=== PATIENT | female | born 1955 | race Caucasian/White ===

== ENCOUNTER 2020-03-31 12:52 | Outpatient (CLI) | payer MEDICARE, OTHER, SELFPAY ==
[2020-03-31] MEDS: iohexol 300 mg/mL 50 mL Btl PO (13:12)
--- NOTE | 2020-03-31 13:30 | CT_ITS ---
WS: [id number] CT ABDOMEN PELVIS TECHNIQUE: Contrast-enhanced CT of the abdomen and pelvis with coronal and sagittal reformatted image s. CLINICAL INFORMATION: abdominal pain- left lower quadrant COMPARISON: July 03, 2019 DLP: 1167.[address] scans at [facility] use at least one of these dose optimization techniques: automat ed exposure control; mA and/or kV adjustment per patient size (includes targeted exams where dose is matched to clinical indication); or iterative reconstruction. FINDINGS: Diffuse fatty infiltration of the liver. Small right hepatic cyst. Portal vein and splenic vein are n ormal. Small esophageal hiatal hernia. A few calcified granulomas in the lung bases. 2 or 3 additiona l pulmonary nodules appear noncalcified measuring up to 3.5 mm Normal gallbladder. Small polyp or noncalcified gallstone in the dependent portion the gallbladder. N o gallbladder wall thickening. Adrenal glands are normal. Normal renal parenchymal enhancement. No hy dronephrosis. No abdominal lymphadenopathy. Sigmoid diverticulosis. No evidence of acute diverticulit is. No evidence of small or large bowel obstruction. Small fat-containing umbilical hernia. No inguin al lymphadenopathy. Normal visualized lumbar spine. CT/CT abdomen pelvis w con* [id number] IMPRESSION: 1. Mild diffuse infiltration of the liver. Stable small right hepatic cyst. 2. Small polyp or noncalcified gallstone in the gallbladder. This can be furth er evaluated ultrasound. 3. Diverticulosis. No evidence of acute diverticulitis. 4. Small esophageal hiatal hernia. 5. A few noncalcified nodules in the lung bases. Recommend chest CT for furthe r evaluation. 6. No abdominal or inguinal lymphadenopathy. 7. Prior hysterectomy.
[2020-03-31] MEDS: iohexol 300 mg/mL 100 mL Btl IV (14:36)
== END 2020-03-31 12:53 | disposition home or self-care (01) ==
LOC: RADWPI 12:54
PROVIDERS: Family Provider Nurse Practitioner; PCP Nurse Practitioner; Visit Provider Surgery
DX: R10.32 Left lower quadrant pain (principal); K76.89 Other specified diseases of liver; K57.90 Diverticulosis of intestine, part unspecified, without perforation or abscess without bleeding; K44.9 Diaphragmatic hernia without obstruction or gangrene; R91.8 Other nonspecific abnormal finding of lung field
CPT/HCPCS: 74177; Q9967

== ENCOUNTER 2020-04-01 11:08 | Outpatient (CLI) | payer MEDICARE, OTHER, SELFPAY ==
--- NOTE | 2020-04-01 13:44 | PFTS_ITS ---
Date of Study:04/01/20 Date of Dictation: MECHANICS: Forced vital capacity (FVC) is normal. Forced expiratory volume in one second (FEV1) is normal. FEV1/FVC is normal. FLOW VOLUME LOOP: Reduced flow at lower lung volumes. LUNG VOLUMES: Total lung capacity (TLC) is normal. Residual volume (RV) is normal. DIFFUSING CAPACITY FOR CARBON MONOXIDE: Normal. INTERPRETATION: The pulmonary function tests are normal. There is reduced flow at lower lung volumes which could be associated with small airways disease or related to age related changes. Lung volumes are normal Gas exchange (DLCO) is normal. MTDD
== END 2020-04-01 11:09 | disposition home or self-care (01) ==
LOC: RT 11:08
PROVIDERS: Family Provider Nurse Practitioner; PCP Nurse Practitioner; Visit Provider Nurse Practitioner
DX: J45.20 Mild intermittent asthma, uncomplicated (principal)
CPT/HCPCS: 94010; 94726; 94729

== ENCOUNTER 2021-08-07 12:30 | Outpatient (CLI) | payer MEDICARE, OTHER, SELFPAY ==
--- NOTE | 2021-08-07 13:07 | MM_ITS ---
WS: [id number] BILATERAL DIGITAL SCREENING MAMMOGRAPHY WITH CAD CLINICAL INFORMATION: SCREENING HISTORY: Screening mammogram. No current complaints. COMPARISON: March 16, 2019 TECHNIQUE: Bilateral CC and MLO views. FINDINGS: Scattered fibroglandular densities bilaterally. Punctate and lucent centered calcifications. Vascular calcifications. No suspicious focal mass, asymmetry, calcifications, or architectural distortion. No evidence of malignancy. MM/[place] [id number] IMPRESSION: BI-RADS: 2-Benign FOLLOW UP: 1 Year Follow-up Recommend return to annual screening mammography.
== END 2021-08-07 12:31 | disposition home or self-care (01) ==
PROVIDERS: PCP Nurse Practitioner; Visit Provider Nurse Practitioner
DX: Z12.31 Encounter for screening mammogram for malignant neoplasm of breast (principal); Z20.822 Contact with and (suspected) exposure to COVID-19
CPT/HCPCS: 77067; 87635

== ENCOUNTER 2021-08-13 07:00 | Day surgery (SDC) | payer MEDICARE, OTHER, SELFPAY ==
[2021-08-07 12:32] VITALS: BMI 36.6
[2021-08-13 07:34] VITALS: BP 152/99; PULSE 71; RESP 18; TEMP 36.7; O2SAT 97
[2021-08-13] MEDS: sodium chloride 0.9% 1,000 ML 30 ML IV (07:40)
--- NOTE | 2021-08-13 07:48 | ANES.PREANE2 ---
Pre-Anesthetic Assessment Pre-Anesthetic Assessment: Height/Weight: Height 1.65 m Weight 99.79 kg Temp Pulse Resp BP Pulse Ox 98.0 F 71 18 152/99 97 08/13/21 07:34 08/13/21 07:34 08/13/21 07:34 08/13/21 07:34 08/13/21 07:34 Preop Diagnosis: chronic constipation Proposed Procedure: Operation Date: 08/13/21 08:00 Proposed Procedures p Colonoscopy 22476 R19.8 R10.10 K59.09 Z86.010(Not Applicable) - Jeovanny Hollis MD Familial anesthetic complications: sensitive to anesthesia Was Beta David taken within 24 hours: N/A Was Clonidine taken within 24 hours: N/A Last intake: Intake Last Liquid Date 08/12/21 Last Liquid Time 20:00 Last Solid Date 08/12/21 Last Solid Time 20:00 Social: Social History: No alcohol and No tobacco Exam: Pre-Anes Outpt Exam: alert, oriented x 3, clear to auscultation bilaterally and regular rate & rhythm Airway: Submandibular: WNL Cervical ROM: WNL MP: 2 Dentition: Full Pulmonary: Pulmonary: Asthma and Sleep apnea CV/HEM: CV/HEM: Angina (Unstable), Arrythmia and HTN : : None reported Hepatic: Comments: fatty liver GI: GI: None reported Metabolic: Metabolic: DM and Morbid obesity Musc/skel: Musc/skel: None reported Neuropsych: Neuropsych: MONTES (not frequent) Anesthetic Plan: ASA status: 3 Anesthesia: MAC Risk of > 500 ml blood loss (7ml/kg in children): No PFSH Anesthesia PFSH: Medical History Abdominal pain Anxiety Asthma Chronic constipation COPD (chronic obstructive pulmonary disease) Diabetes Diverticulosis H/O methicillin resistant Staphylococcus aureus Herpes simplex Hyperlipidemia Hypertension Surgical History H/O section H/O hemorrhoidectomy H/O myomectomy H/O: hysterectomy History of colonoscopy History of tonsillectomy Family History Grandmother Lung disease Osteoporosis Mother Hypertension Stroke Father Cancer leukemia Unknown Lung disease child with astma Social History Smoking and tobacco status: never smoked Alcohol intake: never Adopted: No Caregiver/support person: Yes Lives independently: Yes Household members: spouse Housing: House Marital status: / service: No Current occupational status: employed Current occupational exposures/hazards: No Pets and animals: No History of recent travel: No Sexually active: No Current gender identity: Female Kalie/Yazdanism: Tenriism Special kalie needs: No Agree to transfusion: No Financial difficulty paying for basics: Decline to Answer Data Anesthesia Cardiac Studies: No Data to Display
--- NOTE | 2021-08-13 07:54 | W.PM.OPSUD ---
Surgery/Procedure H&P Update DATE OF PROCEDURE: August 13, 2021 DATE H&P PERFORMED: 08/03/21 H&P UPDATE INFORMATION: No changes to prior documentation PREOP DIAGNOSIS: Chronic constipation, abnormal bowel movements, history of colon polyps. PLANNED PROCEDURE: Operation Date: 08/13/21 08:00 Proposed Procedures p Colonoscopy 19168 R19.8 R10.10 K59.09 Z86.010(Not Applicable) - Jeovanny Hollis MD
--- NOTE | 2021-08-13 07:58 | ECG_ITS ---
[facility] Test Date: 2021-08-13 Pat Name: Padma Jose Department: Room: Gender: Female Cigarette Packer: : 1955 Requested By: Vel Carrasco Order Number: [id number] Loy MD: Wolf Hammond M.D. Measurements Intervals [place] Rate: 48 P: 45 SC: 192 QRS: -5 QRSD: 90 T: 58 QT: 434 QTc: 389 Interpretive Statements SINUS BRADYCARDIA NONSPECIFIC T-WAVE ABNORMALITY Compared to ECG 04/01/2017 14:25:00 T-wave abnormality now present Electronically Signed On 08-13-2021 23:49:04 CDT by Wolf Hammond M.D. [email or web address] memorial community hospitalSmart Lunchesuniversity hospitals parma medical centerChi2gel/store/OM/[id number]
[2021-08-13 08:33] VITALS: BP 119/77; PULSE 56; RESP 12; TEMP 36.3; O2SAT 96
--- NOTE | 2021-08-13 08:37 | ANE.PACU2 ---
Inpatient post-anesthesia follow up: Airway intact: Yes Vital signs: Temperature 98.0 F Pulse Rate 71 Respiratory Rate 18 Blood Pressure 152/99 Pulse Oximetry 97 Oxygen Delivery Me thod Room Air Oxygen Flow Rate Fraction of Inspir ed Oxygen Hydration adequate: Yes Nausea and vomiting: No Pain level: 1 Mental status: Baseline
[2021-08-13 08:48] VITALS: BP 128/86; PULSE 55; RESP 16; TEMP 36.6; O2SAT 95
== END 2021-08-13 09:10 | disposition home or self-care (01) ==
PROVIDERS: PCP Nurse Practitioner; Visit Provider Surgery
PROC: 0DJD8ZZ Inspection of Lower Intestinal Tract, Via Natural or Artificial Opening Endoscopic (ICD-10-PCS; CPT 45378; principal; 2021-08-13 08:00)
DX: K59.09 Other constipation (principal); K57.30 Diverticulosis of large intestine without perforation or abscess without bleeding; Z86.010 Personal history of colon polyps; J44.9 Chronic obstructive pulmonary disease, unspecified; G47.30 Sleep apnea, unspecified; E11.9 Type 2 diabetes mellitus without complications; E78.5 Hyperlipidemia, unspecified; I10 Essential (primary) hypertension; E66.01 Morbid (severe) obesity due to excess calories; Z68.36 Body mass index [BMI] 36.0-36.9, adult
CPT/HCPCS: 45378; 93005; 96360; J2704; J7030

== ENCOUNTER 2022-02-15 07:49 | Outpatient (CLI) | payer MEDICARE, OTHER, SELFPAY ==
--- NOTE | 2022-02-15 08:05 | USCV_ITS ---
Padma Jose Age: 66 Gender: F : 1955 Exam Date: 02/15/2022 08:46 Ordering Phys: Lisa Guan APN Technologist: LUCIO Exam Location: [facility] [place] Indication: HTN BP: 140 / 80 HR: 63 Rhythm: Sinus Technical Quality: Adequate MEASUREMENTS (Male / Female) Normal Values 2D ECHO LV Diastolic Diameter PLAX 4.1 cm 4.2 - 5.9 / 3.9 - 5.3 cm LV Systolic Diameter PLAX 3.4 cm LV Chamber Size 3.3 cm IVS Diastolic Thickness 1.0 cm 0.6 - 1.0 / 0.6 - 0.9 cm IVS Systolic Thickness 1.2 cm LVPW Diastolic Thickness 1.5 cm 0.6 - 1.0 / 0.6 - 0.9 cm LVPW Systolic Thickness 1.3 cm RV Chamber Size 2.6 cm LVOT Diameter 2.0 cm LV Ejection Fraction 2D Teich 36.9 % LV Ejection Fraction MOD 2C 23.7 % LV Ejection Fraction 2C AL 24.1 % LA Diameter 3.5 cm LA Width 3.0 cm LA Height 3.5 cm RA Width 2.6 cm RA Height 3.0 cm Aorta at Sinotubular Diameter 2.6 cm IVC Diameter 2.0 cm M-MODE Aortic Annulus Diameter 2.9 cm LA Ao Ratio MM 1.3 MV E Point Septal Separation 0.4 cm DOPPLER AV Peak Velocity 278.3 cm/s LVOT Peak Velocity 129.3 cm/s AV Area Cont Eq vti 1.7 cm squared AV Area Cont Eq pk 1.5 cm squared MV Area PHT 2.8 cm squared Mitral E to A Ratio 0.8 MV E' Velocity 44.5 cm/s Mitral E to MV E' Ratio 10.4 Mitral E to LV E' Lateral Ratio 9.4 Mitral E to LV E' Septal Ratio 11.7 TR Peak Velocity 183.4 cm/s TR Peak Gradient 13.5 mmHg TR Mean Velocity 120.3 cm/s TR Mean Gradient 6.6 mmHg TR Velocity Time Integral 38.0 cm TV Peak E Velocity 51.0 cm/s Right Atrial Pressure 3.0 mmHg Pulmonary Artery Systolic Pressu 16.5 mmHg PV Peak Velocity 89.0 cm/s RV Acceleration Time 0.2 s RV Ejection Time 0.3 s RV AcT/ET 0.5 FINDINGS Left Ventricle Normal left ventricular size. LV systolic function is normal with EF of 50-55%. No regional wall motion abnormalities. Grade 1 diastolic dysfunction Right Ventricle The right ventricle is normal in size and function. Right Atrium The right atrium is normal in size. Interatrial septum has possible mass vs artifact. Left Atrium The left atrium is normal in size. Mitral Valve Structurally normal mitral valve without significant stenosis or prolapse. There is no mitral regurgitation. Aortic Valve Thickened aortic valve. Mild aortic stenosis with aortic valve area of 1.4 cm squared and mean gradient across aortic valve of 14 mmHg. No significant aortic regurgitation. Tricuspid Valve Structurally normal tricuspid valve without significant stenosis. Trace tricuspid regurgitation. Pulmonary artery systolic pressure is normal. Pulmonic Valve Not well-visualized Pericardium Normal pericardium without effusion. Aorta Normal ascending aorta dimension. CONCLUSIONS LV systolic function is normal with EF of 50-55% Grade 1 diastolic dysfunction Interatrial septum has possible mass vs artifact. Will benefit from cardiac CT vs CRIS Mild aortic stenosis with aortic valve area of 1.4cm2 and mean gradient across aortic valve of 14mmHg Trace tricuspid regurgitation No comparison studies are available Waldo Viera MD (Electronically Signed) Final Date: 27 Feb 2022 18:32 S
== END 2022-02-15 07:50 | disposition home or self-care (01) ==
LOC: RAD 07:50
PROVIDERS: PCP Nurse Practitioner; Visit Provider Nurse Practitioner
DX: I10 Essential (primary) hypertension (principal)
CPT/HCPCS: 93306

== ENCOUNTER 2022-02-22 15:08 | Outpatient (CLI) | payer MEDICARE, OTHER, SELFPAY ==
--- NOTE | 2022-02-22 15:19 | XR_ITS ---
WS: [id number] XR chest 2V* [id number] REASON FOR EXAM: SHORTNESS OF BREATH/WHEEZING FINDINGS: Chest is unchanged compared to 02/17/2018. Calcified granulomatous disease in both hemithoraces with several larger calcified granulomata in the periphery of the right lung. No active pulmonary parenchymal or pleural disease is identified. Moderate changes of degenerative spondylosis in the mid and lower thoracic spine. XR/XR chest 2V* [id number] IMPRESSION: No acute chest abnormality.
== END 2022-02-22 15:09 | disposition home or self-care (01) ==
LOC: RAD 15:14
PROVIDERS: PCP Nurse Practitioner; Visit Provider Nurse Practitioner Family
DX: R06.02 Shortness of breath (principal); R06.2 Wheezing
CPT/HCPCS: 71046

== ENCOUNTER 2022-03-08 07:39 | Outpatient (CLI) | payer MEDICARE, OTHER, SELFPAY ==
[2022-03-08 07:46] VITALS: BMI 39.9
--- NOTE | 2022-03-08 07:46 | ECG_ITS ---
[facility] Test Date: 2022-03-08 Pat Name: Padma Jose Department: Room: Gender: Female Missile Technician: Vijaya VegaIvy : 1955 Requested By: Lisa Zayas Order Number: [id number] Loy MD: Waldo Viera M.D. Interpretive Statements NAME OF STUDY: LEXISCAN SESTAMIBI STRESS TEST INDICATION: [Atypical Chest Pain, ] Procedure: At the baseline, the blood pressure was 148/100 mmHg with a heart rate of 57 bpm. The electrocardiogram showed normal sinus rhythm, normal axis with normal ST and T's. The Lexiscan was infused over a period of 20 seconds. A total of 0.4 mg of Lexiscan was infused. The stress phase was continued for a total of 5 minutes. Heart rate was at the end of stress phase was 72 bpm and a blood pressure of 136/81 mmHg. The EKG at the peak infusion revealed normal sinus rhythm with no significant ST-T wave changes. Sestamibi was injected 20 seconds after the Lexiscan infusion. Blood pressure at the end of recovery phase was 136/84 mmHg with a heart rate of 72 bpm.Occasional PVCs are seen Conclusion: 1. Normal EKG response to Lexiscan infusion 2. No Lexiscan induced chest pain or cardiac arrhythmia. 3. Normal blood pressure and heart rate response. 4. Sestamibi/sestamibi perfusion scan pending; see separate report. Electronically Signed On 04-04-2022 23:14:27 CDT by Waldo Viera M.D. [id number]
--- NOTE | 2022-03-08 07:47 | NMCV_ITS ---
NM radha perf SPECT r/s* [id number] Padma Jose Age: 66 Gender: F : 1955 Exam Date: 03/08/2022 07:47 Ordering Phys: Lisa Guan APN Technologist: ELTON Finnegan Exam Location: [facility] Indications: SHORTNESS OF BREATH STRESS TEST Please see separate stress test report in [facility] for full findings IMAGE PROTOCOL Rest/Stress 1 Lexiscan Day Radiopharmaceutical Dose (mCi) Administration Site Administered by Rest: Tc-99m 10.9 IV ELTON Garcia Sestamibi Stress:Tc-99m 32.8 IV ELTON Garcia Sestamibi Rest: 08-Mar-2022 60 Discovery 630 Stress: 08-Mar-2022 30 Discovery 630 0.4mg Lexiscan. Images obtained in supine and prone position. SPECT RESULTS Technical Quality: Excellent Raw Data Analysis: Normal Image Corrections: No attenuation or motion correction applied Summed Stress Score: 0 Summed Rest Score: 1 Summed Difference Score: 0 PERFUSION FINDINGS There is homogenous radiotracer uptake throughout the myocardium. No evidence of ischemia FUNCTIONAL RESULTS (calculated via Gated SPECT) Stress Image LV EF (%): 82 Stress EDV (mL):91 TID: 0.93 Stress ESV (mL):16 FUNCTIONAL FINDINGS: There is normal left ventricular systolic function. IMPRESSIONS 1. Normal myocardial perfusion imaging with no evidence of ischemia. 2. Normal LV systolic function Waldo Viera MD (Electronically Signed) Final Date: 08 Mar 2022 12:20 S
[2022-03-08] MEDS: regadenoson 0.4 Mg/5 ml Syringe IVP (09:36)
[2022-03-08 09:54] VITALS: BP 136/84; PULSE 69
== END 2022-03-08 07:40 | disposition home or self-care (01) ==
LOC: CDL 07:45
PROVIDERS: PCP Nurse Practitioner; Visit Provider Nurse Practitioner
DX: R06.02 Shortness of breath (principal)
CPT/HCPCS: 78452; 93017; A9500; J2785

== ENCOUNTER 2022-03-11 13:19 | Outpatient (CLI) | payer MEDICARE, OTHER, SELFPAY ==
--- NOTE | 2022-03-11 14:39 | PFTS_ITS ---
Date of Study:03/11/22 Date of Dictation: MECHANICS: Forced vital capacity (FVC) is normal. Forced expiratory volume in one second (FEV1) is normal. FEV1/FVC is normal. FLOW VOLUME LOOP: Mild scooping. LUNG VOLUMES: Total lung capacity (TLC) is normal. Residual volume (RV) is normal. DIFFUSING CAPACITY FOR CARBON MONOXIDE: Normal. INTERPRETATION: The prebronchodilator spirometry is normal. No postbronchodilator spirometry was performed. Lung volumes are normal. Gas exchange (DLCO) is normal. MTDD
== END 2022-03-11 13:20 | disposition home or self-care (01) ==
LOC: RT 13:22
PROVIDERS: PCP Nurse Practitioner Family; Visit Provider Nurse Practitioner Family
DX: J45.20 Mild intermittent asthma, uncomplicated (principal)
CPT/HCPCS: 94010; 94726; 94729

== ENCOUNTER → 2022-03-17 13:01 | Outpatient (BNVA) | payer MEDICARE, OTHER, SELFPAY | PROVIDERS: PCP Nurse Practitioner Family; Visit Provider Internal Medicine Critical Care Medicine | DX: J45.40 Moderate persistent asthma, uncomplicated (principal); J31.0 Chronic rhinitis; J32.9 Chronic sinusitis, unspecified; D15.1 Benign neoplasm of heart; I35.0 Nonrheumatic aortic (valve) stenosis; J45.909 Unspecified asthma, uncomplicated; R06.02 Shortness of breath; E11.8 Type 2 diabetes mellitus with unspecified complications; E78.5 Hyperlipidemia, unspecified; I10 Essential (primary) hypertension | CPT/HCPCS: 82785; 85025; 86003; 99204 ==

== ENCOUNTER 2022-05-02 18:51 | Emergency (ER) | payer MEDICARE, OTHER, SELFPAY ==
[2022-05-02 19:11] VITALS: BP 156/78; PULSE 71; RESP 20; TEMP 36.9; O2SAT 95; BMI 42.0
--- NOTE | 2022-05-02 21:32 | USR_ITS ---
PROCEDURE INFORMATION: Exam: US Abdomen, Limited; Right Upper Quadrant Exam date and time: 05/02/2022 10:25 PM Age: 66 years old Clinical indication: Abdominal pain; Additional info: Ruq pain TECHNIQUE: Imaging protocol: Real time ultrasound of the abdomen with image documentation. Limited exam focused on the right upper quadrant. COMPARISON: CT abdomen pelvis w con* [id number] 03/31/2020 2:35 PM FINDINGS: Liver: Visible portion of the liver is normal. Gallbladder: The gallbladder is nondistended. There are no stones. There is no pericholecystic fluid. Sonographic Castillo sign is negative. The gallbladder wall is diffusely thickened to 5 mm. The wall is echogenic. There is no laminar edema. Biliary ducts: The common bile duct is nondilated measuring 3 mm. Pancreas: The visible portion of the pancreas is unremarkable. Right kidney: Not imaged US/US gall bladder [id number] IMPRESSION: Nonspecific gallbladder wall thickening. Possible adenomyomatosis. Chronic cholecystitis is not excluded. There are no other findings of acute cholecystitis and no tenderness to transducer pressure over gallbladder.
--- NOTE | 2022-05-02 22:12 | W.ED.ABDPA2 ---
Documented by User: ILIANA Deleon 05/03/22 03:10 HPI - Abdominal Pain General: Chief Complaint: Abdominal Pain Stated Complaint: Pain Under right Breast goes around\V Time Seen by Provider: 05/02/22 21:32 History of Present Illness: Patient is a 66-year-old female comes to the ED with abdominal pain nausea and vomiting. Symptoms started approximately 2 days ago. Pain is located in the right upper quadrant of the abdomen. She rates the pain currently a 7 out of 10. She says she has had nausea and vomiting with the pain. She had multiple episodes of emesis yesterday. Endorses a decreased appetite since onset of symptoms. Eating food does not worsen abdominal pain. Patient says her urine appears darker than usual. Denies any fevers, chest pain, shortness of breath, diarrhea, constipation, dysuria or hematuria. Past abdominal surgery history of and appendectomy. Patient still has gallbladder and has been told years ago that she had gallstones. Associated Symptoms: Reports nausea and vomiting; Denies chills, constipation, diarrhea, dysuria, fever(s), hematochezia and hematuria Review of Systems Const: Reports: change in appetite (Decreased); Denies: fever(s), chills or fatigue Eyes: Denies: change in vision or eye discomfort ENMT: Denies: throat pain, odynophagia, nasal discharge or nasal congestion Card: Denies: chest pain, palpitations, edema, swelling of feet/ankles, dyspnea on exertion or orthopnea Resp: Denies: dyspnea, productive cough or non-productive cough GI: Reports: abdominal pain (Right upper quadrant), nausea and vomiting; Denies: diarrhea, constipation or hematochezia : Denies: flank pain, dysuria or hematuria Musc: Denies: neck pain, back pain or extremity swelling Skin/Breast: Denies: rash or new lesions Neuro: Denies: headache(s), numbness in extremities or weakness in extremities PFS ED PFS: Medical History (Updated 05/03/22 @ 00:03 by ILIANA Deleon) Abdominal pain Anxiety Asthma Chronic constipation COPD (chronic obstructive pulmonary disease) Diabetes Diverticulosis H/O methicillin resistant Staphylococcus aureus Herpes simplex Hyperlipidemia Hypertension Surgical History H/O section H/O hemorrhoidectomy H/O myomectomy H/O: hysterectomy History of colonoscopy History of tonsillectomy Family History Grandmother Lung disease Osteoporosis Mother Hypertension Stroke Father Cancer leukemia Unknown Lung disease child with astma Social History Smoking and tobacco status: never smoked Alcohol intake: never Adopted: No Caregiver/support person: Yes Lives independently: Yes Household members: spouse Housing: House Marital status: / service: No Current occupational status: employed Current occupational exposures/hazards: No Pets and animals: No History of recent travel: No Sexually active: No Current gender identity: Female Kalie/Yarsani: Christianity Special kalie needs: No Agree to transfusion: No Financial difficulty paying for basics: Decline to Answer Physical Exam Const: COMMON NORMALS: patient oriented x3 and alert GENERAL APPEARANCE: cooperative HENMT: COMMON NORMALS: normocephalic HEAD & SCALP: normocephalic MOUTH: Normal oral and palatal mucosa present THROAT: posterior oropharynx normal and uvula midline Neck/C-Spine: COMMON NORMALS: supple GENERAL: Yes normal visual inspection Resp: COMMON NORMALS: normal respiratory effort, No retractions, No use of accessory muscles and clear to auscultation bilaterally AUSCULTATION: clear to auscultation bilaterally Cardio: COMMON NORMALS: regular rate, regular rhythm, S1 normal heart sound present, S2 normal heart sound present, No gallops present (Cardio), No clicks present (Cardio), No murmurs present (Cardio) and Peripheral pulses 2+ throughout RATE: regular rate RHYTHM: regular rhythm HEART SOUNDS: S1 normal heart sound present and S2 normal heart sound present PERIPHERAL PULSES: Peripheral pulses 2+ throughout GI: COMMON NORMALS: Normal to inspection, nondistended, normoactive bowel sounds present, Soft to palpation, non-tender and no masses PALPATION: Yes Soft to palpation and Yes Tenderness to palpation present (GI) Details: RUQ (Positive Castillo's sign) : COMMON NORMALS: Yes no CVA tenderness BLADDER/KIDNEY EXAM: Yes no CVA tenderness Back/Pelvis: COMMON NORMALS: no CVA tenderness Extremity: COMMON NORMALS: normal to inspection Neuro: COMMON NORMALS: patient oriented x3 SENSORIUM/ORIENTATION: Yes alert GAIT: Yes Normal gait present Skin: GENERAL SKIN EXAM: dry skin Course Vital Signs: Vital signs: Vital Signs Temperature 98.5 F 05/02/22 19:11 Pulse Rate 89 05/03/22 00:31 Respiratory Rate 16 05/03/22 00:31 Blood Pressure 139/79 05/03/22 00:31 Pulse Oximetry 95 05/02/22 19:11 MDM - Abdominal Pain Medical Decision Making Patient is a 66-year-old female comes to the ED with abdominal pain nausea and vomiting. Symptoms started approximately 2 days ago. Pain is located in the right upper quadrant of the abdomen. Endorses nausea and vomiting as well. Has had a history of gallstones in the past. Vitals are stable and patient is afebrile. Patient appears nontoxic and in no acute distress. She does have some right upper quadrant abdominal tenderness. Rest of exam is benign. AST and ALT are elevated the rest of CBC and CMP are unremarkable. Ultrasound gallbladder showed some nonspecific gallbladder wall thickening but no signs of any acute cholecystitis. Possible adenomyomatosis noted. Patient was given IV fluids, Zofran and morphine and her pain resolved completely. I placed an order with case management for patient to be referred to general surgery for follow-up on right upper quadrant abdominal pain. Patient would like to see Dr. Mas. She was diagnosed with biliary colic in discharged home with a prescription for nausea meds and [place] for pain. Return to ED precautions given. Patient was told manager of case management will contact them the next several days set up an appointment with general surgery. Patient understood and agreed with plan. Lab Data I reviewed the patient's lab results. : 05/02/22 22:19 05/02/22 22:19 Labs/Radiology: Radiology Impressions Gallbladder Ultrasound 05/02/22 21:32 IMPRESSION: Nonspecific gallbladder wall thickening. Possible adenomyomatosis. Chronic cholecystitis is not excluded. There are no other findings of acute cholecystitis and no tenderness to transducer pressure over gallbladder. Laboratory Results WBC 10.8 10^3/uL (4.0-10.0) H 05/02/22 22:19 RBC 4.74 10^6/uL (4.1-5.3) 05/02/22 22:19 Hgb 13.0 g/dL (11.5-15.3) 05/02/22 22:19 Hct 37.2 % (37.0-47.0) 05/02/22 22:19 MCV 78.5 fl (81-99) L 05/02/22 22:19 MCH 27.4 pg (28.0-34.0) L 05/02/22 22:19 MCHC 34.9 g/dL (30.0-36.0) 05/02/22 22:19 RDW 13.2 % (12.1-15.1) 05/02/22 22:19 Plt Count 142 10^3/cmm (130-400) 05/02/22 22:19 MPV 11.2 fL (7.4-10.4) H 05/02/22 22:19 Lymph % (Auto) Not Reportable 05/02/22 22:19 [place] % (Auto) Not Reportable 05/02/22 22:19 Lymph # (Auto) Not Reportable 05/02/22 22:19 [place] # (Auto) Not Reportable 05/02/22 22:19 Total Counted 100 (0-100) 05/02/22 22:19 Atypical Lymphs % 8.0 % (0-5) H 05/02/22 22:19 Absolute Neutrophils 3.8 10^3/cmm (1.4-6.5) 05/02/22 22:19 Segmented Neutrophils 35 % 05/02/22 22:19 Abs Segm Neuts (Man) 3.8 10/cmm (1.6-7.1) 05/02/22 22:19 Band Neutrophils 0.0 % 05/02/22 22:19 Abs Band Neuts (Man) 0.0 10^3/cmm (0.0-1.2) 05/02/22 22:19 Absolute Lymphocytes 5.9 10^3/cmm (1.2-3.4) H 05/02/22 22:19 Lymphocytes (Manual) 47 % 05/02/22 22:19 Monocytes (Manual) 10.0 % 05/02/22 22:19 Absolute Monocytes 1.1 10^3/cmm (0.1-0.6) H 05/02/22 22:19 Eosinophils (Manual) 0 % 05/02/22 22:19 Absolute Eosinophils 0.0 10^3/cmm (0.0-0.7) 05/02/22 22:19 Basophils (Manual) 0.0 % 05/02/22 22:19 Absolute Basophils 0.0 10^3/cmm (0.0-0.2) 05/02/22 22:19 Platelet Estimate Normal (Normal) 05/02/22 22:19 Sodium 132 mmol/L (136-145) L 05/02/22 22:19 Potassium 4.2 mmol/L (3.5-5.1) 05/02/22 22:19 Chloride 97 mmol/L (98-107) L 05/02/22 22:19 Carbon Dioxide 24 mmol/L (22-29) 05/02/22 22:19 Anion Gap 15.2 (5-19) 05/02/22 22:19 BUN 18 mg/dL (8-23) 05/02/22 22:19 Creatinine 0.8 mg/dL (0.5-0.9) 05/02/22 22:19 GFR Calculation 71.5 mL/min (90-130) L 05/02/22 22:19 Glucose 109 mg/dL (65-115) 05/02/22 22:19 Calculated Osmolality 276 mOsm/kg (285-295) L 05/02/22 22:19 Calcium 8.5 mg/dL (8.5-10.5) 05/02/22 22:19 Total Bilirubin 1.4 mg/dL (0.15-1.2) H 05/02/22 22:19 AST 173 U/L (0-32) H 05/02/22 22:19 ALT 253 U/L (0-33) H 05/02/22 22:19 Alkaline Phosphatase 463 IU/L (35-105) H 05/02/22 22:19 Total Protein 6.3 g/dL (6.6-8.7) L 05/02/22 22:19 Albumin 3.3 g/dL (3.5-5.2) L 05/02/22 22:19 Globulin 3.0 g/dL (1.3-4.6) 05/02/22 22:19 Lipase 19 U/L (13-60) 05/02/22 22:19 Urine Color Yellow (Yellow) 05/02/22 22:20 Urine Appearance Clear (CLEAR) 05/02/22 22:20 Urine pH 6 (5-7) 05/02/22 22:20 Ur Specific [place] 1.005 (1.005-1.030) 05/02/22 22:20 Urine Protein Neg (Negative) 05/02/22 22:20 Urine Glucose (UA) Norm (Normal) 05/02/22 22:20 Urine Ketones Negative (Negative) 05/02/22 22:20 Urine Blood Neg (Negative) 05/02/22 22:20 Urine Nitrate Negative (Negative) 05/02/22 22:20 Urine Bilirubin Neg (Negative) 05/02/22 22:20 Urine Urobilinogen Norm mg/dL (Negative) 05/02/22 22:20 Ur Leukocyte Esterase Negative (Negative) 05/02/22 22:20 Discharge Plan Discharge Patient Disposition: Home Clinical Impression: Biliary colic Condition: Stable Prescriptions: New ondansetron 4 mg tablet,disintegrating 4 mg PO Q8H PRN (Reason: nausea and vomiting) Qty: 20 0RF No Action albuterol sulfate [Proventil HFA] 90 mcg/actuation HFA aerosol inhaler 2 puff INHALATION Q6H PRN (Reason: Allergy Symptoms) 0RF albuterol sulfate 0.63 mg/3 mL solution for nebulization 0.63 mg INHALATION QID PRN (Reason: Allergy Symptoms) 0RF clonidine HCl 0.1 mg tablet 0.05 mg PO BID 0RF cyclobenzaprine 10 mg tablet 10 mg PO TID 0RF budesonide [Pulmicort] 0.25 mg/2 mL suspension for nebulization 2 ml INHALATION BID 0RF montelukast [Singulair] 10 mg tablet 10 mg PO DAILY PRN0RF diltiazem HCl 120 mg capsule,extended release 12 hr 120 mg PO BID 0RF Zyrtec 10 mg capsule 10 mg PO DAILY PRN0RF fluticasone propion-salmeterol [Advair Diskus] 250-50 mcg/dose blister with device 1 inh inhalation BID Qty: 60 6RF Discharge Orders: Discharge ED (Routine); Ordered 05/03/22 Ordered By: Lj Gerber Referrals: Nida Rodas NP [Primary Care Provider] - Discharge Diet: Advance as tolerated Discharge Activity: Increase activity as tolerated Patient Instructions: Biliary Colic (ED), Opioid Safety Activity Restrictions/Additional Instructions: Follow-up with medical provider as directed. Case management should be contacting you in the next several days to set up an appointment with Dr. Mas for follow-up on right upper quadrant abdominal pain. Take medications as prescribed. Advance diet as tolerated. Return to the ER or your medical provider if condition worsens. Please read and understand discharge instructions. Thank you for choosing [facility] for your healthcare needs today. Please realize this is an emergency room and that we are providing you with a medical screening exam and this may not be complete and all inclusive of all the testing and or work up that you may need to determine your ailment or severity of your illness. It is very important that you follow up as instructed or that you return to the Emergency Department should you have concerns or if your condition changes or worsens in any way. Coding Level of Care Code ED Senior Portfolio Analyst for Chg Fwd Exam Comprehensive Documented by User: Reji Anders, 05/03/22 03:29 HPI - Abdominal Pain General: Chief Complaint: Abdominal Pain Stated Complaint: Pain Under right Breast goes around\V Time Seen by Provider: 05/02/22 21:32 [facility] [place] ED PFSH: Medical History (Updated 05/03/22 @ 00:03 by ILIANA Deleon) Abdominal pain Anxiety Asthma Chronic constipation COPD (chronic obstructive pulmonary disease) Diabetes Diverticulosis H/O methicillin resistant Staphylococcus aureus Herpes simplex Hyperlipidemia Hypertension Surgical History H/O section H/O hemorrhoidectomy H/O myomectomy H/O: hysterectomy History of colonoscopy History of tonsillectomy Family History Grandmother Lung disease Osteoporosis Mother Hypertension Stroke Father Cancer leukemia Unknown Lung disease child with astma Social History Smoking and tobacco status: never smoked Alcohol intake: never Adopted: No Caregiver/support person: Yes Lives independently: Yes Household members: spouse Housing: House Marital status: / service: No Current occupational status: employed Current occupational exposures/hazards: No Pets and animals: No History of recent travel: No Sexually active: No Current gender identity: Female Kalie/Yarsani: Christianity Special kalie needs: No Agree to transfusion: No Financial difficulty paying for basics: Decline to Answer Course Vital Signs: Vital signs: Vital Signs Temperature 98.5 F 05/02/22 19:11 Pulse Rate 89 05/03/22 00:31 Respiratory Rate 16 05/03/22 00:31 Blood Pressure 139/79 05/03/22 00:31 Pulse Oximetry 95 05/02/22 19:11 MDM - Abdominal Pain Medical Decision Making Patient is a 66-year-old female comes to the ED with abdominal pain nausea and vomiting. Symptoms started approximately 2 days ago. Pain is located in the right upper quadrant of the abdomen. Endorses nausea and vomiting as well. Has had a history of gallstones in the past. Vitals are stable and patient is afebrile. Patient appears nontoxic and in no acute distress. She does have some right upper quadrant abdominal tenderness. Rest of exam is benign. AST and ALT are elevated the rest of CBC and CMP are unremarkable. Ultrasound gallbladder showed some nonspecific gallbladder wall thickening but no signs of any acute cholecystitis. Possible adenomyomatosis noted. Patient was given IV fluids, Zofran and morphine and her pain resolved completely. I placed an order with case management for patient to be referred to general surgery for follow-up on right upper quadrant abdominal pain. Patient would like to see Dr. Mas. She was diagnosed with biliary colic in discharged home with a prescription for nausea meds and [place] for pain. Return to ED precautions given. Patient was told manager of case management will contact them the next several days set up an appointment with general surgery. Patient understood and agreed with plan. This patient was originally seen by Mr. Zabrina PA-C.? I agree with his history, evaluation, and treatment. Lab Data : 05/02/22 22:19 05/02/22 22:19 Labs/Radiology: Radiology Impressions Gallbladder Ultrasound 05/02/22 21:32 IMPRESSION: Nonspecific gallbladder wall thickening. Possible adenomyomatosis. Chronic cholecystitis is not excluded. There are no other findings of acute cholecystitis and no tenderness to transducer pressure over gallbladder. Laboratory Results WBC 10.8 10^3/uL (4.0-10.0) H 05/02/22 22:19 RBC 4.74 10^6/uL (4.1-5.3) 05/02/22 22:19 Hgb 13.0 g/dL (11.5-15.3) 05/02/22 22:19 Hct 37.2 % (37.0-47.0) 05/02/22 22:19 MCV 78.5 fl (81-99) L 05/02/22 22:19 MCH 27.4 pg (28.0-34.0) L 05/02/22 22:19 MCHC 34.9 g/dL (30.0-36.0) 05/02/22 22:19 RDW 13.2 % (12.1-15.1) 05/02/22 22:19 Plt Count 142 10^3/cmm (130-400) 05/02/22 22:19 MPV 11.2 fL (7.4-10.4) H 05/02/22 22:19 Lymph % (Auto) Not Reportable 05/02/22 22:19 [place] % (Auto) Not Reportable 05/02/22 22:19 Lymph # (Auto) Not Reportable 05/02/22 22:19 [place] # (Auto) Not Reportable 05/02/22 22:19 Total Counted 100 (0-100) 05/02/22 22:19 Atypical Lymphs % 8.0 % (0-5) H 05/02/22 22:19 Absolute Neutrophils 3.8 10^3/cmm (1.4-6.5) 05/02/22 22:19 Segmented Neutrophils 35 % 05/02/22 22:19 Abs Segm Neuts (Man) 3.8 10/cmm (1.6-7.1) 05/02/22 22:19 Band Neutrophils 0.0 % 05/02/22 22:19 Abs Band Neuts (Man) 0.0 10^3/cmm (0.0-1.2) 05/02/22 22:19 Absolute Lymphocytes 5.9 10^3/cmm (1.2-3.4) H 05/02/22 22:19 Lymphocytes (Manual) 47 % 05/02/22 22:19 Monocytes (Manual) 10.0 % 05/02/22 22:19 Absolute Monocytes 1.1 10^3/cmm (0.1-0.6) H 05/02/22 22:19 Eosinophils (Manual) 0 % 05/02/22 22:19 Absolute Eosinophils 0.0 10^3/cmm (0.0-0.7) 05/02/22 22:19 Basophils (Manual) 0.0 % 05/02/22 22:19 Absolute Basophils 0.0 10^3/cmm (0.0-0.2) 05/02/22 22:19 Platelet Estimate Normal (Normal) 05/02/22 22:19 Sodium 132 mmol/L (136-145) L 05/02/22 22:19 Potassium 4.2 mmol/L (3.5-5.1) 05/02/22 22:19 Chloride 97 mmol/L (98-107) L 05/02/22 22:19 Carbon Dioxide 24 mmol/L (22-29) 05/02/22 22:19 Anion Gap 15.2 (5-19) 05/02/22 22:19 BUN 18 mg/dL (8-23) 05/02/22 22:19 Creatinine 0.8 mg/dL (0.5-0.9) 05/02/22 22:19 GFR Calculation 71.5 mL/min (90-130) L 05/02/22 22:19 Glucose 109 mg/dL (65-115) 05/02/22 22:19 Calculated Osmolality 276 mOsm/kg (285-295) L 05/02/22 22:19 Calcium 8.5 mg/dL (8.5-10.5) 05/02/22 22:19 Total Bilirubin 1.4 mg/dL (0.15-1.2) H 05/02/22 22:19 AST 173 U/L (0-32) H 05/02/22 22:19 ALT 253 U/L (0-33) H 05/02/22 22:19 Alkaline Phosphatase 463 IU/L (35-105) H 05/02/22 22:19 Total Protein 6.3 g/dL (6.6-8.7) L 05/02/22 22:19 Albumin 3.3 g/dL (3.5-5.2) L 05/02/22 22:19 Globulin 3.0 g/dL (1.3-4.6) 05/02/22 22:19 Lipase 19 U/L (13-60) 05/02/22 22:19 Urine Color Yellow (Yellow) 05/02/22 22:20 Urine Appearance Clear (CLEAR) 05/02/22 22:20 Urine pH 6 (5-7) 05/02/22 22:20 Ur Specific [place] 1.005 (1.005-1.030) 05/02/22 22:20 Urine Protein Neg (Negative) 05/02/22 22:20 Urine Glucose (UA) Norm (Normal) 05/02/22 22:20 Urine Ketones Negative (Negative) 05/02/22 22:20 Urine Blood Neg (Negative) 05/02/22 22:20 Urine Nitrate Negative (Negative) 05/02/22 22:20 Urine Bilirubin Neg (Negative) 05/02/22 22:20 Urine Urobilinogen Norm mg/dL (Negative) 05/02/22 22:20 Ur Leukocyte Esterase Negative (Negative) 05/02/22 22:20 Discharge Plan Discharge Patient Disposition: Home Clinical Impression: Biliary colic Condition: Stable Prescriptions: New ondansetron 4 mg tablet,disintegrating 4 mg PO Q8H PRN (Reason: nausea and vomiting) Qty: 20 0RF No Action albuterol sulfate [Proventil HFA] 90 mcg/actuation HFA aerosol inhaler 2 puff INHALATION Q6H PRN (Reason: Allergy Symptoms) 0RF albuterol sulfate 0.63 mg/3 mL solution for nebulization 0.63 mg INHALATION QID PRN (Reason: Allergy Symptoms) 0RF clonidine HCl 0.1 mg tablet 0.05 mg PO BID 0RF cyclobenzaprine 10 mg tablet 10 mg PO TID 0RF budesonide [Pulmicort] 0.25 mg/2 mL suspension for nebulization 2 ml INHALATION BID 0RF montelukast [Singulair] 10 mg tablet 10 mg PO DAILY PRN0RF diltiazem HCl 120 mg capsule,extended release 12 hr 120 mg PO BID 0RF Zyrtec 10 mg capsule 10 mg PO DAILY PRN0RF fluticasone propion-salmeterol [Advair Diskus] 250-50 mcg/dose blister with device 1 inh inhalation BID Qty: 60 6RF Discharge Orders: Discharge ED (Routine); Ordered 05/03/22 Ordered By: Lj Gerber Referrals: Nida Rodas NP [Primary Care Provider] - Discharge Diet: Advance as tolerated Discharge Activity: Increase activity as tolerated Patient Instructions: Biliary Colic (ED), Opioid Safety Activity Restrictions/Additional Instructions: Follow-up with medical provider as directed. Case management should be contacting you in the next several days to set up an appointment with Dr. Mas for follow-up on right upper quadrant abdominal pain. Take medications as prescribed. Advance diet as tolerated. Return to the ER or your medical provider if condition worsens. Please read and understand discharge instructions. Thank you for choosing [facility] for your healthcare needs today. Please realize this is an emergency room and that we are providing you with a medical screening exam and this may not be complete and all inclusive of all the testing and or work up that you may need to determine your ailment or severity of your illness. It is very important that you follow up as instructed or that you return to the Emergency Department should you have concerns or if your condition changes or worsens in any way. Coding Level of Care Code ED Senior Portfolio Analyst for Jg Fwd Exam Comprehensive
[2022-05-02 22:24] VITALS: RESP 16
[2022-05-02] MEDS: ondansetron 2 mg/ML SDV 2 mL 4 MG IVP (22:24)
[2022-05-02] MEDS: morphine 4 mg/mL SDV 1 mL 2 MG IVP (22:24)
[2022-05-02 22:38] LABS: Add Urine Microscopic? NO; Charge for UA Resulting for Rev
[2022-05-02 22:39] LABS: Hematocrit 37.2 % (37.0-47.0); Mean Corpuscular HGB Conc 34.9 g/dL (30.0-36.0); Mean Corpuscular Hemoglobin 27.4 pg (28.0-34.0); Mean Corpuscular Volume 78.5 fl (81-99); Mean Platelet Volume 11.2 fL (7.4-10.4); Platelet Count 142 10^3/cmm (130-400); Red Blood Count 4.74 10^6/uL (4.1-5.3); Red Cell Distribution Width 13.2 % (12.1-15.1); White Blood Count 10.8 10^3/uL (4.0-10.0)
[2022-05-02 22:42] LABS: Bilirubin Urine Neg (Negative); Blood Urine Neg (Negative); Glucose Urine UA Norm (Normal); Ketones Urine Negative (Negative); Leukocyte Esterase Urine Negative (Negative); Nitrate Urine Negative (Negative); Protein Urine Neg (Negative); Specific Gravity, Urine 1.005 (1.005-1.030); Urine Appearance Clear (CLEAR); Urine Color Yellow (Yellow); Urobilinogen Urine Norm (Negative); pH Urine 6 (5-7)
[2022-05-02 23:04] LABS: Alanine Aminotransferase 253 U/L (0-33); Albumin Level 3.3 g/dL (3.5-5.2); Alkaline Phosphatase 463 IU/L (35-105); Anion Gap 15.2 (5-19); Aspartate Amino Transferase 173 U/L (0-32); Blood Urea Nitrogen 18 mg/dL (8-23); Calcium 8.5 mg/dL (8.5-10.5); Carbon Dioxide 24 mmol/L (22-29); Chloride 97 mmol/L (98-107); Glomerular Filtration Rate 71.5 mL/min (90-130); Glucose 109 mg/dL (65-115); Lipase 19 U/L (13-60); Osmolality Calculated 276 mOsm/kg (285-295); Potassium 4.2 mmol/L (3.5-5.1); Sodium 132 mmol/L (136-145); Total Bilirubin 1.4 mg/dL (0.15-1.2); Total Protein 6.3 g/dL (6.6-8.7)
[2022-05-02 23:23] LABS: Absolute Neutrophil 3.8 10^3/cmm (1.4-6.5); Absolute Segmented Neutrophil 3.8 10/cmm (1.6-7.1); Eosinophils 0 %; Lymphocytes 47 %; Lymphocytes Absolute 5.9 10^3/cmm (1.2-3.4); Monocytes Absolute 1.1 10^3/cmm (0.1-0.6); Platelet Estimate Normal (Normal); Segmented Neutrophils 35 %; Total Cells Counted 100 (0-100)
[2022-05-02] MEDS: sodium chloride 0.9% 1,000 ML 999 ML IV (23:37)
[2022-05-03] MEDS: HYDROcodone-acetaminophen 5-325 mg Tablet 2 TAB PO (00:28)
[2022-05-03 00:31] VITALS: BP 139/79; PULSE 89; RESP 16
--- NOTE | 2022-05-03 14:34 | DCPLANNER ---
Addendum entered by Amy Rai 06/11/22 16:25: Patient did attend appointment. Addendum entered by Amy Rai 05/11/22 15:00: Patient had a follow up appointment scheduled for May at 1:[address] Mas at general surgery. Clinic will call patient with appointment information. Original Note: manager games had message to schedule a follow up appointment for patient with general surgery. manager games sent patients information tp the front office staff at general surgery. Patients information will be printed and reviewed. Clinic will call patient with appointment information.
== END 2022-05-03 00:32 | disposition home or self-care (01) ==
PROVIDERS: Emergency Provider Physician Assistant; PCP Nurse Practitioner Family
DX: K80.50 Calculus of bile duct without cholangitis or cholecystitis without obstruction (principal); J44.9 Chronic obstructive pulmonary disease, unspecified; E11.9 Type 2 diabetes mellitus without complications; E78.5 Hyperlipidemia, unspecified; I10 Essential (primary) hypertension
CPT/HCPCS: 36415; 76705; 80053; 81003; 83690; 85007; 85025; 87040; 96361; 96374; 96375; 99285; J2270; J2405; J7030

== ENCOUNTER → 2022-05-19 14:39 | Outpatient (BNVA) | payer MEDICARE, OTHER, SELFPAY | PROVIDERS: PCP Nurse Practitioner Family; Visit Provider Internal Medicine | DX: I35.0 Nonrheumatic aortic (valve) stenosis (principal); J45.40 Moderate persistent asthma, uncomplicated | CPT/HCPCS: 99203; 99204 ==

== ENCOUNTER → 2022-06-03 13:20 | Outpatient (BNVA) | payer MEDICARE, OTHER, SELFPAY | PROVIDERS: PCP Nurse Practitioner Family; Visit Provider Surgery | DX: R10.9 Unspecified abdominal pain (principal); D13.5 Benign neoplasm of extrahepatic bile ducts; R13.10 Dysphagia, unspecified | CPT/HCPCS: 99213 ==

== ENCOUNTER → 2022-06-18 09:17 | Outpatient (BNVA) | payer MEDICARE, OTHER, SELFPAY | PROVIDERS: PCP Nurse Practitioner Family; Visit Provider Internal Medicine Critical Care Medicine | DX: J45.40 Moderate persistent asthma, uncomplicated (principal); J31.0 Chronic rhinitis; J32.9 Chronic sinusitis, unspecified; I35.0 Nonrheumatic aortic (valve) stenosis; I51.89 Other ill-defined heart diseases | CPT/HCPCS: 99214 ==

== ENCOUNTER 2022-08-06 07:12 | Outpatient (CLI) | payer MEDICARE, OTHER, SELFPAY ==
--- NOTE | 2022-08-06 07:45 | US_ITS ---
WS: [id number] RIGHT UPPER QUADRANT ULTRASOUND HISTORY: abdominal pain right upper quad COMPARISON: Prior CT 03/31/2020 and gallbladder ultrasound 05/02/2022 Liver: 16.3 cm in length. Normal size liver. No bile duct dilatation or mass. Portal Vein: Normal hepatopetal flow with monophasic waveform. Gallbladder: Well distended gallbladder. Stones are identified within the gallbladder on today's exam ination with shadowing. Prominent septation extends to the gallbladder. This may be due to due to fol ded gallbladder. Gallbladder wall is top normal size. CBD: 0.2 cm Pancreas: Normal size and echogenicity. Right kidney: 9.6 cm in length. Normal size and echogenicity. No hydronephrosis or mass. Aorta and IVC: Unremarkable abdominal aorta and IVC. No ascites. US/US gall bladder [id number] IMPRESSION: 1. Cholelithiasis with mild gallbladder wall thickening. Stone in the gallblad milena was not identified on the most recent examination but probably present. No acute pericholecystic fluid. 2. Normal bowel duct.
--- NOTE | 2022-08-06 09:00 | FL_ITS ---
WS: [id number] Modified barium swallow, 08/06/2022 Clinical Data: Food sticks in the esophagus, frequent choking and coughing. Comparison: None. Fluoroscopy time: 1min [id number] # of spot films: 1 Findings: The patient initiated the oral propulsion of the various consistencies. The bolus moves normally thro ugh the hypopharynx. There was no aspiration or penetration. There was decreased bolus transport in t he upper one third of the esophagus. The barium tablet did progress normally through the hypopharynx and esophagus into the stomach. FL/FL barium swallow modifd [id number] Impression: 1. Negative for aspiration or penetration. 2. Decreased bolus transport in the upper one third of the esophagus.
== END 2022-08-06 07:13 | disposition home or self-care (01) ==
LOC: RAD 07:13
PROVIDERS: PCP Nurse Practitioner Family; Visit Provider Surgery
DX: R10.9 Unspecified abdominal pain (principal); T18.128A Food in esophagus causing other injury, initial encounter; K80.20 Calculus of gallbladder without cholecystitis without obstruction
CPT/HCPCS: 74230; 76705; 92611

== ENCOUNTER → 2022-08-18 10:47 | Outpatient (BNVA) | payer MEDICARE, OTHER, SELFPAY | PROVIDERS: PCP Nurse Practitioner Family; Visit Provider Surgery | DX: Z09 Encounter for follow-up examination after completed treatment for conditions other than malignant neoplasm (principal); R13.10 Dysphagia, unspecified | CPT/HCPCS: 99213 ==

== ENCOUNTER 2022-08-19 10:34 | Day surgery (SDC) | payer MEDICARE, OTHER, SELFPAY ==
[2022-08-18 14:53] VITALS: BMI 39.9
--- NOTE | 2022-08-19 10:51 | W.PM.OPSUD ---
Surgery/Procedure H&P Update DATE OF PROCEDURE: August 19, 2022 DATE H&P PERFORMED: 08/18/22 H&P UPDATE INFORMATION: I have reviewed H&P completed within last 30 days, I have examined patient prior to procedure and No changes to prior documentation PREOP DIAGNOSIS: Dysphagia PRIMARY INDICATION FOR PROCEDURE: The same PLANNED PROCEDURE: Operation Date: 08/19/22 11:15 Proposed Procedures p EGD 65005,R13.10(Not Applicable) - Jalen Mas MD
[2022-08-19 10:52] VITALS: BP 148/108; PULSE 57; RESP 18; TEMP 36.2; O2SAT 97
[2022-08-19] MEDS: sodium chloride 0.9% 1,000 ML 30 ML IV (11:04)
--- NOTE | 2022-08-19 11:06 | ANES.PREANE2 ---
Pre-Anesthetic Assessment Height/Weight: Height 1.65 m Weight 108.862 kg Temp Pulse Resp BP Pulse Ox O2 Del Method 97.2 F L 57 L 18 148/108 97 08/19/22 10:52 08/19/22 10:52 08/19/22 10:52 08/19/22 10:52 08/19/22 10:52 08/19/22 10:52 Preop Diagnosis: Dysphagia Operation Date: 08/19/22 11:15 Proposed Procedures p EGD 63823,R13.10(Not Applicable) - Jalen Mas MD Familial anesthetic complications: none Was Beta David taken within 24 hours: N/A Was Clonidine taken within 24 hours: N/A Last intake: Intake Last Liquid Date 08/18/22 Last Liquid Time 23:50 Last Solid Date 08/18/22 Last Solid Time 19:00 Social No alcohol and No tobacco Exam alert, oriented x 3, clear to auscultation bilaterally and regular rate & rhythm Airway Submandibular: within normal limits Cervical ROM: within normal limits Mallampati: Class I Dentition: full Pulmonary Asthma (used inhaler months ago ) CV/HEM Arrythmia, Hypertension and Murmur None reported Hepatic None reported GI Gastroesophageal Reflux Disease (controlled with tums) Metabolic Diabetes Mellitus (pre) and Morbid Obesity [facility] [place] None reported Neuropsych None reported Anesthetic Plan ASA status: 3 Anesthesia: MAC Risk of > 500 ml blood loss (7ml/kg in children): No Medications/Allergies Home Medications Medication Instructions Recorded Confirmed Last Taken Type albuterol sulfate 0.63 mg/3 mL 0.63 mg inhalation QID PRN Allergy 03/19/20 08/19/22 Unknown History solution for nebulization Symptoms albuterol sulfate 90 mcg/actuation 2 puff inhalation Q6H PRN Allergy 03/19/20 08/19/22 Unknown History aerosol inhaler (Proventil HFA) Symptoms furosemide 20 mg tablet (Lasix) 20 mg PO QAM PRN edema #30 tabs 06/17/22 08/19/22 08/18/22 Rx budesonide 0.25 mg/2 mL suspension 0.25 mg inhalation BID PRN 06/18/22 08/19/22 Unknown History for nebulization (Pulmicort) Shortness Of Breath cyclobenzaprine 10 mg tablet 10 mg PO TID PRN Muscle Spasm 06/18/22 08/19/22 Unknown History budesonide-formoterol HFA 160 2 puff inhalation BID #10.2 grams 06/22/22 08/19/22 Unknown Rx mcg-4.5 mcg/actuation aerosol inhaler (Symbicort) montelukast 10 mg tablet 10 mg PO DAILY #90 tabs 06/22/22 08/19/22 08/18/22 Rx (Singulair) diltiazem HCl 120 mg 120 mg PO DAILY #90 caps 07/08/22 08/19/22 08/18/22 Rx capsule,extended release 24 hr losartan 100 mg tablet 100 mg PO DAILY #90 tabs 07/08/22 08/19/22 08/18/22 Rx Allergies Allergy/AdvReac Type Severity Reaction Status Date / Time amlodipine Allergy Severe SWELLING Verified 08/19/22 10:47 LEG levothyroxine sodium Allergy Mild MOOD Verified 08/19/22 10:47 [From Synthroid] CHANGES lisinopril Allergy Mild TROUBLE Verified 08/19/22 10:47 BREATHING Penicillins Allergy ALGY-Hives Verified 08/19/22 10:47 Sulfa (Sulfonamide Allergy ALGY-Hives Verified 08/19/22 10:47 Antibiotics) Current Medications Generic Name Dose Route Start Last Admin Trade Name Freq PRN Reason Stop Dose Admin Sodium Chloride 1,000 mls @ 30 mls/hr 08/19/22 10:45 08/19/22 11:04 Sodium Chloride 0.9% IV 30 mls/hr .Q24H RAMYA Administration PFSH Anesthesia Medical History (Updated 08/19/22 @ 10:46 by Jalen Mas MD) Abdominal pain Adenomyomatosis of gallbladder Anxiety Asthma Chronic constipation COPD (chronic obstructive pulmonary disease) Diabetes Diverticulosis H/O methicillin resistant Staphylococcus aureus Herpes simplex Hyperlipidemia Hypertension Surgical History H/O section H/O hemorrhoidectomy H/O myomectomy H/O: hysterectomy History of colonoscopy History of tonsillectomy Family History Grandmother Lung disease Osteoporosis Mother Hypertension Stroke Father Cancer leukemia Unknown Lung disease child with astma Social History Smoking and tobacco status: never smoked Alcohol intake: never Adopted: No Caregiver/support person: Yes Lives independently: Yes Household members: spouse Housing: House Marital status: / service: No Current occupational status: employed Current occupational exposures/hazards: No Pets and animals: No History of recent travel: No Sexually active: No Current gender identity: Female Kalie/Moravian: Moravian Special kalie needs: No Agree to transfusion: No Financial difficulty paying for basics: Decline to Answer Data Anesthesia Cardiac Studies: Echocardiogram 02/15/22 Sestamibi Stress Test (Cardiology) 03/08/22
[2022-08-19 11:45] VITALS: BP 137/95; PULSE 59; RESP 18; TEMP 36.7; O2SAT 95
--- NOTE | 2022-08-19 11:49 | ANE.PACU2 ---
Inpatient post-anesthesia follow up: Airway intact: Yes Vital signs: Temperature 97.2 F Pulse Rate 57 Respiratory Rate 18 Blood Pressure 148/108 Pulse Oximetry 97 Oxygen Delivery Me thod Room Air Oxygen Flow Rate Fraction of Inspir ed Oxygen Hydration adequate: Yes Nausea and vomiting: No Pain level: 1 Mental status: Baseline
== END 2022-08-19 12:20 | disposition home or self-care (01) ==
PROVIDERS: PCP Nurse Practitioner Family; Visit Provider Surgery
PROC: 0DJ08ZZ Inspection of Upper Intestinal Tract, Via Natural or Artificial Opening Endoscopic (ICD-10-PCS; CPT 43235; principal; 2022-08-19 11:15)
DX: R13.10 Dysphagia, unspecified (principal); K21.00 Gastro-esophageal reflux disease with esophagitis, without bleeding; K44.9 Diaphragmatic hernia without obstruction or gangrene; K29.50 Unspecified chronic gastritis without bleeding; B96.81 Helicobacter pylori [H. pylori] as the cause of diseases classified elsewhere; J44.9 Chronic obstructive pulmonary disease, unspecified; I10 Essential (primary) hypertension; E11.9 Type 2 diabetes mellitus without complications; E66.01 Morbid (severe) obesity due to excess calories; Z68.39 Body mass index [BMI] 39.0-39.9, adult; Z86.14 Personal history of Methicillin resistant Staphylococcus aureus infection; E78.5 Hyperlipidemia, unspecified
CPT/HCPCS: 43239; 88305; 88342; J2704; J7030

== ENCOUNTER → 2022-09-02 15:45 | Outpatient (BNVA) | payer MEDICARE, OTHER, SELFPAY | PROVIDERS: PCP Nurse Practitioner Family; Visit Provider Surgery | DX: Z09 Encounter for follow-up examination after completed treatment for conditions other than malignant neoplasm (principal); K29.70 Gastritis, unspecified, without bleeding; R13.10 Dysphagia, unspecified | CPT/HCPCS: 99212 ==

== ENCOUNTER 2022-10-06 12:47 | Outpatient (CLI) | payer MEDICARE, OTHER, SELFPAY ==
--- NOTE | 2022-10-06 12:57 | XR_ITS ---
WS: [id number] Exam: XR ribs LT mn 3V w CXR1V [id number] Date/Time of Exam: 10/06/2022 1:01 PM Reason For Exam: PLEURODYNIA There is a fracture of the anterior lateral left sixth rib. No other rib fractures are identified. Th e left lung is clear and fully expanded. No pleural or pulmonary reactive changes. XR/XR ribs LT mn 3V w CXR1V [id number] IMPRESSION: 1. Minimally displaced fracture of the anterior lateral left sixth rib. No pneu mothorax.
== END 2022-10-06 12:48 | disposition home or self-care (01) ==
LOC: RAD 12:50
PROVIDERS: PCP Nurse Practitioner Family; Visit Provider Nurse Practitioner Family
DX: S22.32XA Fracture of one rib, left side, initial encounter for closed fracture (principal); X58.XXXA Exposure to other specified factors, initial encounter
CPT/HCPCS: 71101

== ENCOUNTER 2022-10-12 13:04 | Outpatient (CLI) | payer MEDICARE, OTHER, SELFPAY | END 2022-10-12 13:05 | disposition home or self-care (01) | LOC: LAB 13:09 | PROVIDERS: PCP Nurse Practitioner Family; Visit Provider Surgery | DX: Z86.19 Personal history of other infectious and parasitic diseases (principal) | CPT/HCPCS: 87338 ==

== ENCOUNTER 2022-10-22 13:31 | Outpatient (CLI) | payer MEDICARE, OTHER, SELFPAY ==
--- NOTE | 2022-10-22 13:38 | MM_ITS ---
WS: [id number] BILATERAL 2D TOMOSYNTHESIS DIGITAL SCREENING MAMMOGRAPHY WITH CAD CLINICAL INFORMATION: SCREENING HISTORY: Screening mammogram. No current complaints. COMPARISON: 2020 TECHNIQUE: Bilateral CC and MLO views. FINDINGS: Scattered fibroglandular densities bilaterally. No suspicious focal mass, asymmetry, calcifications, or architectural distortion. No evidence of malignancy. Punctate and lucent centered calcifications. Vascular calcifications. MM/[place] [id number] IMPRESSION: BI-RADS: 2-Benign FOLLOW UP: 1 Year Follow-up Recommend return to annual screening mammography.
== END 2022-10-22 13:32 | disposition home or self-care (01) ==
LOC: RAD 13:32
PROVIDERS: PCP Nurse Practitioner Family; Visit Provider Nurse Practitioner Family
DX: Z12.31 Encounter for screening mammogram for malignant neoplasm of breast (principal)
CPT/HCPCS: 77067

== ENCOUNTER → 2023-02-16 13:12 | Outpatient (BNVA) | payer MEDICARE, OTHER, SELFPAY | PROVIDERS: PCP Nurse Practitioner Family; Visit Provider Internal Medicine | DX: I35.0 Nonrheumatic aortic (valve) stenosis (principal); J45.40 Moderate persistent asthma, uncomplicated; I10 Essential (primary) hypertension | CPT/HCPCS: 99214 ==

== ENCOUNTER 2023-02-17 15:27 | Outpatient (CLI) | payer MEDICARE, OTHER, SELFPAY ==
--- NOTE | 2023-02-17 15:45 | USCV_ITS ---
Padma Jose Age: 67 Gender: F : 1955 Exam Date: 02/17/2023 15:54 Ordering Phys: Waldo Viera M.D ([email or web address]) Technologist: Nicholas Cordova [place] [facility] [place]: HISTORY: PROCEDURES: FINDINGS: There is no evidence of bilateral deep vein thrombosis. No evidence of superficial thrombosis in the bilateral saphenous system. No evidence of reflux was noted in the bilateral deep venous system. There is reflux noted in the right SSV at mid. There is reflux noted in the left GSV below knee. The reflux time at the mid small saphenous vein segment on the right side [id number] 1 ms. The reflux time at the below-knee segment of the greater saphenous vein on the left side was 3510 msec CONCLUSIONS 1. No evidence of DVT in the above-mentioned identifiable veins. 2. Significant venous reflux of greater than 500 ms were noted at the mid small saphenous vein segment on the right side and at the below- knee segment of the greater saphenous vein on the left side. These venous segments were found to have a diameter of 0.29 cm and 0.38 cm respectively. They were found to be greater than 1 cm deep from the surface. 3. No significant venous reflux were noted in the other segments Dr Wolf Hammond MD [facility] (Electronically Signed) Final Date: 17 Feb 2023 23:39 S
== END 2023-02-17 15:28 | disposition home or self-care (01) ==
LOC: RAD 15:32
PROVIDERS: PCP Electrodiagnostic Medicine; Visit Provider Internal Medicine
DX: M79.605 Pain in left leg (principal); M79.604 Pain in right leg
CPT/HCPCS: 93306; 93970

== ENCOUNTER 2023-03-01 13:58 | Outpatient (CLI) | payer MEDICARE, OTHER, SELFPAY ==
--- NOTE | 2023-03-01 | USCV_ITS ---
Padma Jose Age: 67 Gender: F : 1955 Exam Date: 03/01/2023 14:36 Ordering Phys: Waldo Viera M.D Technologist: WEST Exam Location: [facility] [place] Indication: AORTIC STENOSIS BP: 144 / 86 HR: 57 Rhythm: Sinus Technical Quality: Adequate MEASUREMENTS (Male / Female) Normal Values 2D ECHO LVOT Diameter 2.0 cm LV Ejection Fraction MOD 2C 69.3 % LV Ejection Fraction 2C AL 70.3 % LA Diameter 3.4 cm LA Width 3.6 cm LA Height 4.6 cm RA Width 3.4 cm RA Height 4.5 cm Aorta at Sinotubular Diameter 2.4 cm IVC Diameter 1.8 cm M-MODE Aortic Annulus Diameter 2.9 cm LA Ao Ratio MM 1.2 MV E Point Septal Separation 0.4 cm DOPPLER AV Peak Velocity 249.3 cm/s LVOT Peak Velocity 123.0 cm/s AV Area Cont Eq vti 1.4 cm squared AV Area Cont Eq pk 1.6 cm squared MV Peak Velocity 127.0 cm/s MV Area PHT 3.2 cm squared Mitral E to A Ratio 0.8 MV E' Velocity 55.5 cm/s Mitral E to MV E' Ratio 11.3 Mitral E to LV E' Lateral Ratio 12.0 Mitral E to LV E' Septal Ratio 10.8 TR Peak Velocity 211.0 cm/s TR Peak Gradient 17.8 mmHg TR Mean Velocity 209.5 cm/s TR Mean Gradient 17.8 mmHg TR Velocity Time Integral 82.1 cm TV Peak E Velocity 57.0 cm/s Right Atrial Pressure 3.0 mmHg Pulmonary Artery Systolic Pressu 20.8 mmHg PV Peak Velocity 131.0 cm/s RV Acceleration Time 0.1 s RV Ejection Time 0.3 s RV AcT/ET 0.5 FINDINGS Left Ventricle Left ventricle is normal in size. LV systolic function is normal with EF of 55 to 60%. No regional wall motion abnormalities are seen. Grade 1 diastolic dysfunction Right Ventricle Normal in size and function Right Atrium Normal in size. Echogenic structure seen attached to interatrial septum. Left Atrium Normal in size Mitral Valve Mild mitral annular calcification is seen. Mild mitral regurgitation. Aortic Valve Structurally normal aortic valve. Mild aortic stenosis is seen with aortic valve area of 1.42 cm squared and mean gradient across aortic valve of 14 mmHg. Tricuspid Valve Mild tricuspid regurgitation. Pulmonary artery systolic pressure is normal Pulmonic Valve Not well-visualized Pericardium Normal Aorta Normal in size IVC Appears to be normal CONCLUSIONS LV systolic function is normal with EF 55 to 60%. Grade 1 diastolic dysfunction. Echogenic structure seen attached to interatrial septum. This is unchanged from before Mild aortic stenosis. Mild mitral annular calcification is seen. Mild tricuspid regurgitation Compared to prior echocardiogram from 2021, no significant changes are seen. Waldo Viera MD (Electronically Signed) Final Date: 11 Mar 2023 16:06 S
== END 2023-03-01 13:59 | disposition home or self-care (01) ==
PROVIDERS: PCP Electrodiagnostic Medicine; Visit Provider Internal Medicine
DX: I35.0 Nonrheumatic aortic (valve) stenosis (principal); R06.02 Shortness of breath
CPT/HCPCS: 93306

== ENCOUNTER 2023-05-28 23:17 | Emergency (ER) | payer MEDICARE, OTHER, SELFPAY ==
[2023-05-28 23:18] VITALS: BP 162/97; PULSE 72; RESP 18; TEMP 36.6; O2SAT 94; BMI 43.2
--- NOTE | 2023-05-28 23:21 | XRR_ITS ---
PROCEDURE INFORMATION: Exam: XR Chest Exam date and time: 05/28/2023 11:29 PM Age: 67 years old Clinical indication: Other: Syncope TECHNIQUE: Imaging protocol: Radiologic exam of the chest. Views: 1 view. COMPARISON: CR XR ribs LT mn 3V w CXR1V [id number] 10/06/2022 1:01 PM FINDINGS: Lungs: Several stable calcified granulomas bilaterally. Pleural spaces: Unremarkable. No pleural effusion. No pneumothorax. Heart/Mediastinum: Unremarkable. No cardiomegaly. Bones/joints: Unremarkable. XR/XR chest 1V portable [id number] IMPRESSION: Several stable calcified granulomas bilaterally.
[2023-05-28 23:26] VITALS: BP 162/97; PULSE 75; RESP 16; O2SAT 96
--- NOTE | 2023-05-28 23:28 | ECG_ITS ---
[facility] Test Date: 2023-05-28 Pat Name: Padma Jose Department: Room: Gender: Female Incident Response Coordinator: : 1955 Requested By: Diamond Gaffney Order Number: [id number] Reading MD: Casimiro Crisostomo M.D. Measurements Intervals Worth Rate: 65 P: 68 UT: 199 QRS: -5 QRSD: 79 T: 64 QT: 360 QTc: 375 Interpretive Statements SINUS RHYTHM LOW QRS VOLTAGE IN PRECORDIAL LEADS [QRS DEFLECTION < 1.0 mV IN CHEST LEADS] SEPTAL MYOCARDIAL INFARCTION , PROBABLY OLD [40+ ms Q WAVE IN V1/V2] Compared to ECG 08/13/2021 08:01:14 Low QRS voltage now present Myocardial infarct finding now present Sinus bradycardia no longer present T-wave abnormality no longer present Electronically Signed On 05-29-2023 11:30:01 CDT by Casimiro Crisostomo M.D. [id number]
--- NOTE | 2023-05-28 23:29 | ED_ITS ---
HPI - Weakness General: Chief complaint: Weakness Stated complaint: SYNCOPAL Time Seen by Provider: 05/28/23 23:21 Source: patient and EMS Mode of arrival: EMS Limitations: no limitations History of Present Illness: 67-year-old female states that this evening around 8:00 started to feel little lightheaded states she got diaphoretic she took an aspirin 800 magnesium states she checked her blood pressure was 80/60 so she drank a cup of coffee states she never passed out but felt like she was going to she called EMS states that she feels much improved currently her blood pressure improved she denies any pain currently she had no fever no vomiting. Associated symptoms: Reports nausea; Denies chest pain, chills, fever(s), headache(s) or vomiting Review of Systems Const: Denies: fever(s) or chills Eyes: Denies: blurry vision or eye discomfort ENMT: Denies: throat pain or dental pain Card: Reports: pre-syncope; Denies: chest pain Resp: Denies: dyspnea GI: Reports: nausea; Denies: abdominal pain, vomiting or diarrhea Musc: Denies: neck pain or back pain Skin/Breast: Denies: rash Neuro: Denies: headache(s) PFSH ED PFSH: Medical History Abdominal pain Acid reflux Adenomyomatosis of gallbladder Anxiety Asthma Chronic constipation COPD (chronic obstructive pulmonary disease) Diabetes Diverticulosis H/O methicillin resistant Staphylococcus aureus Herpes simplex Hiatal hernia Hyperlipidemia Hypertension Surgical History H/O section H/O hemorrhoidectomy H/O myomectomy H/O: hysterectomy History of colonoscopy History of tonsillectomy Family History Grandmother Lung disease Osteoporosis Mother Hypertension Stroke Father Cancer leukemia Unknown Lung disease child with astma Social History Smoking and tobacco status: never smoked Alcohol intake: never Substance/Drug Use: never Adopted: No Caregiver/support person: Yes Lives independently: Yes Household members: spouse Housing: House Marital status: / service: No Current occupational status: employed Current occupational exposures/hazards: No Pets and animals: No Sexually active: No Do you think of yourself as: Straight/Heterosexual Current gender identity: Female Kalie/Shinto: Rastafarian Special kalie needs: No Agree to transfusion: No Financial difficulty paying for basics: Decline to Answer Physical Exam Const: COMMON NORMALS: no acute distress, patient oriented x3 and healthy appearing HENMT: COMMON NORMALS: normocephalic and atraumatic HEAD & SCALP: normocephalic and atraumatic Eye: COMMON NORMALS: Equal, round and reactive pupils present and EOMs intact bilaterally PUPIL: Yes Equal, round and reactive pupils present Neck/C-Spine: COMMON NORMALS: full ROM and supple Chest: COMMONS NORMALS: normal inspection of the chest and normal palpation of entire chest wall Resp: COMMON NORMALS: normal respiratory effort, No retractions, No use of accessory muscles and clear to auscultation bilaterally AUSCULTATION: clear to auscultation bilaterally Cardio: COMMON NORMALS: regular rate, regular rhythm and No murmurs present (Cardio) RATE: regular rate RHYTHM: regular rhythm GI: COMMON NORMALS: Normal to inspection, nondistended, normoactive bowel sounds present, Soft to palpation, non-tender and no masses PALPATION: Yes Soft to palpation Extremity: COMMON NORMALS: normal to inspection and full ROM Neuro: COMMON NORMALS: patient oriented x3, moves all extremities and no focal motor deficits Psych: COMMON NORMALS: mental status grossly normal, Normal thought process present and cooperative THOUGHT PROCESS: Normal thought process present Skin: COMMON NORMALS: no rashes or lesions noted and no wounds GENERAL SKIN EXAM: no rashes or lesions noted Course Vital Signs: Vital signs: Vital Signs Temperature 98 F 05/28/23 23:18 Pulse Rate 70 05/29/23 01:50 Respiratory Rate 16 05/29/23 01:50 Blood Pressure 130/101 05/29/23 01:50 Pulse Oximetry 95 05/29/23 01:50 Oxygen Delivery Me thod Room Air 05/28/23 23:26 MDM - Weakness Medical Decision Making Patient presents here with a near syncopal event she has been well-appearing here her troponins are negative patient stable for Medical Records I reviewed the patient's medical records. Lab Data I reviewed the patient's lab results. 05/28/23 23:53 05/28/23 23:53 Radiology Impressions Chest X-Ray 05/28/23 23:21 IMPRESSION: Several stable calcified granulomas bilaterally. Laboratory Results WBC 11.9 10^3/uL (4.0-10.0) H 05/28/23 23:53 RBC 5.00 10^6/uL (4.1-5.3) 05/28/23 23:53 Hgb 13.7 g/dL (11.5-15.3) 05/28/23 23:53 Hct 41.0 % (37.0-47.0) 05/28/23 23:53 MCV 82.0 fl (81-99) 05/28/23 23:53 MCH 27.4 pg (28.0-34.0) L 05/28/23 23:53 MCHC 33.4 g/dL (30.0-36.0) 05/28/23 23:53 RDW 13.0 % (12.1-15.1) 05/28/23 23:53 Plt Count 316 10^3/cmm (130-400) 05/28/23 23:53 MPV 9.8 fL (7.4-10.4) 05/28/23 23:53 Neut % (Auto) 70.3 % 05/28/23 23:53 Lymph % (Auto) 19.6 % 05/28/23 23:53 Wallace % (Auto) 8.5 % 05/28/23 23:53 Eos % (Auto) 0.8 % 05/28/23 23:53 Baso % (Auto) 0.3 % 05/28/23 23:53 Neut # (Auto) 8.38 10^3/uL (1.8-7.7) H 05/28/23 23:53 Lymph # (Auto) 2.3 10^3/uL (0.8-4.8) 05/28/23 23:53 Wallace # (Auto) 1.0 10^3/uL (0.2-0.9) H 05/28/23 23:53 Eos # (Auto) 0.1 10^3/uL (0.0-0.8) 05/28/23 23:53 Baso # (Auto) 0.0 10^3/uL (0.0-0.1) 08/12/23 23:53 Nucleated RBC % (auto) 0 % 05/28/23 23:53 Nucleated RBCs # 0.0 /100WBC 05/28/23 23:53 Sodium 136 mmol/L (136-145) 05/28/23 23:53 Potassium 3.9 mmol/L (3.5-5.1) 05/28/23 23:53 Chloride 99 mmol/L (98-107) 05/28/23 23:53 Carbon Dioxide 23 mmol/L (22-29) 05/28/23 23:53 Anion Gap 17.9 (5-19) 05/28/23 23:53 BUN 27 mg/dL (8-23) H 05/28/23 23:53 Creatinine 1.2 mg/dL (0.5-0.9) H 05/28/23 23:53 GFR Calculation 44.7 mL/min (90-130) L 05/28/23 23:53 Glucose 150 mg/dL (65-115) H 05/28/23 23:53 Calculated Osmolality 290 mOsm/kg (285-295) 05/28/23 23:53 Calcium 9.0 mg/dL (8.5-10.5) 05/28/23 23:53 Total Bilirubin 0.3 mg/dL (0.15-1.2) 05/28/23 23:53 AST 19 U/L (0-32) 05/28/23 23:53 ALT 21 U/L (0-33) 05/28/23 23:53 Alkaline Phosphatase 95 U/L (35-105) 05/28/23 23:53 Troponin T Baseline 13 ng/L (0-10) H 05/28/23 23:53 Troponin T 120 Minute 11.55 ng/L (0-10) H 05/29/23 01:25 Delta Troponin T -1.45 ABS# (0-10) L 05/29/23 01:25 Total Protein 6.7 g/dL (6.6-8.7) 05/28/23 23:53 Albumin 4.1 g/dL (3.5-5.2) 05/28/23 23:53 Globulin 2.6 g/dL (1.3-4.6) 05/28/23 23:53 EKG Data EKG 1: I personally reviewed and interpreted this EKG as follows: EKG interpretation date: 05/28/23 EKG interpretation time: 23:25 Interpretation: nsr hr [address] or t wave abnormalities qrs 98 qtc 432 Discharge Plan Discharge Patient Disposition: Home Clinical Impression: Near syncope Condition: Stable Prescriptions: No Action albuterol sulfate [Proventil HFA] 90 mcg/actuation HFA aerosol inhaler 2 puff INHALATION Q6H PRN (Reason: Allergy Symptoms) albuterol sulfate 0.63 mg/3 mL solution for nebulization 0.63 mg INHALATION QID PRN (Reason: Allergy Symptoms) budesonide [Pulmicort] 0.25 mg/2 mL suspension for nebulization 0.25 mg INHALATION BID PRN (Reason: Shortness Of Breath) pantoprazole [Protonix] 40 mg tablet,delayed release (DR/EC) 40 mg PO DAILY PRN furosemide [Lasix] 20 mg tablet 20 mg PO QAM PRN (Reason: edema) Qty: 90 3RF metoprolol succinate 50 mg tablet extended release 24 hr 75 mg PO DAILY Qty: 135 3RF olmesartan 40 mg tablet 40 mg PO DAILY Qty: 90 3RF ibuprofen 600 mg tablet 600 mg PO Q6H PRN (Reason: pain) Qty: 30 0RF budesonide-formoterol [Symbicort] 160-4.5 mcg/actuation HFA aerosol inhaler 2 puff inhalation BID Qty: 10.2 3RF Discharge Orders: Discharge ED (Routine); Ordered 05/29/23 Ordered By: Diamond Gaffney Referrals: Reginald Quevedo DO [Primary Care Provider] - 1-3 days Discharge Diet: Advance as tolerated Discharge Activity: Resume usual activity Patient Instructions: Near Syncope (ED) Coding Level of Care Code ED Integrated Circuit Layout Designer for Jg Truong
[2023-05-28 23:58] LABS: Basophils % 0.3 %; Eosinophils # 0.1 10^3/uL (0.0-0.8); Eosinophils % 0.8 %; Hemoglobin 13.7 g/dL (11.5-15.3); Lymphocytes # 2.3 10^3/uL (0.8-4.8); Lymphocytes % 19.6 %; Mean Corpuscular HGB Conc 33.4 g/dL (30.0-36.0); Mean Corpuscular Hemoglobin 27.4 pg (28.0-34.0); Mean Platelet Volume 9.8 fL (7.4-10.4); Monocytes % 8.5 %; Neutrophils # 8.38 10^3/uL (1.8-7.7); Neutrophils % 70.3 %; Nucleated Red Blood Cells % 0 %; Platelet Count 316 10^3/cmm (130-400); White Blood Count 11.9 10^3/uL (4.0-10.0)
[2023-05-29 00:04] VITALS: BP 128/81; PULSE 68; RESP 16; O2SAT 94
[2023-05-29 00:18] LABS: Alanine Aminotransferase 21 U/L (0-33); Albumin Level 4.1 g/dL (3.5-5.2); Alkaline Phosphatase 95 U/L (35-105); Anion Gap 17.9 (5-19); Aspartate Amino Transferase 19 U/L (0-32); Blood Urea Nitrogen 27 mg/dL (8-23); Carbon Dioxide 23 mmol/L (22-29); Chloride 99 mmol/L (98-107); Creatinine Clr Calc Pharmacy 57.6396; Globulin 2.6 g/dL (1.3-4.6); Glomerular Filtration Rate 44.7 mL/min (90-130); Glucose 150 mg/dL (65-115); Osmolality Calculated 290 mOsm/kg (285-295); Potassium 3.9 mmol/L (3.5-5.1); Sodium 136 mmol/L (136-145); Total Bilirubin 0.3 mg/dL (0.15-1.2); Total Protein 6.7 g/dL (6.6-8.7); Troponin(5th) Baseline 13 ng/L (0-10)
[2023-05-29] MEDS: sodium chloride 0.9% 1,000 ML 999 ML IV (01:00)
[2023-05-29 01:10] VITALS: BP 125/79; PULSE 69; RESP 16; O2SAT 94
--- NOTE | 2023-05-29 01:38 | ECG_ITS ---
[facility] Test Date: 2023-05-29 Pat Name: Padma Jose Department: Room: Gender: Female Bobcat Driver/Labor: : 1955 Requested By: Diamond Gaffney Order Number: [id number] Reading MD: Casimiro Crisostomo M.D. Measurements Intervals [place] Rate: 66 P: 71 AR: 187 QRS: 34 QRSD: 82 T: 66 QT: 365 QTc: 384 Interpretive Statements SINUS RHYTHM SEPTAL MYOCARDIAL INFARCTION , PROBABLY OLD [40+ ms Q WAVE IN V1/V2] Compared to ECG 05/28/2023 23:47:19 No significant changes Electronically Signed On 05-29-2023 11:38:15 CDT by Casimiro Crisostomo M.D. [id number]
[2023-05-29 01:50] VITALS: BP 130/101; PULSE 70; RESP 16; O2SAT 95
[2023-05-29 01:56] LABS: Troponin 5 2HR 11.55 ng/L (0-10)
[2023-05-29 01:57] LABS: Troponin 5 2HR Delta -1.45 ABS# (0-10)
[2023-05-29 02:14] VITALS: BP 130/101; PULSE 70; RESP 16; TEMP 36.6; O2SAT 95
== END 2023-05-29 02:15 | disposition home or self-care (01) ==
PROVIDERS: Emergency Provider Emergency Medicine; PCP Electrodiagnostic Medicine
DX: R55 Syncope and collapse (principal)
CPT/HCPCS: 36415; 71045; 80053; 84484; 85025; 93005; 96360; 99285; J7030

== ENCOUNTER → 2023-06-08 13:03 | Outpatient (BNVA) | payer MEDICARE, OTHER, SELFPAY | PROVIDERS: PCP Electrodiagnostic Medicine; Visit Provider Nurse Practitioner Family | DX: I10 Essential (primary) hypertension (principal); I35.0 Nonrheumatic aortic (valve) stenosis | CPT/HCPCS: 99214 ==

== ENCOUNTER → 2023-08-17 14:45 | Outpatient (BNVA) | payer MEDICARE, OTHER, SELFPAY | PROVIDERS: PCP Electrodiagnostic Medicine; Visit Provider Nurse Practitioner Family | DX: I10 Essential (primary) hypertension (principal); I35.0 Nonrheumatic aortic (valve) stenosis | CPT/HCPCS: 99214 ==

== ENCOUNTER → 2023-12-30 08:05 | Outpatient (BNVA) | payer MEDICARE, OTHER, SELFPAY | PROVIDERS: PCP Electrodiagnostic Medicine; Visit Provider Podiatrist Foot & Ankle Surgery | DX: B35.1 Tinea unguium; L60.0 Ingrowing nail | CPT/HCPCS: 99203 ==

== ENCOUNTER → 2024-02-21 14:16 | Outpatient (BNVA) | payer MEDICARE, OTHER, SELFPAY | PROVIDERS: PCP Electrodiagnostic Medicine; Visit Provider Internal Medicine | DX: I35.0 Nonrheumatic aortic (valve) stenosis (principal); J45.40 Moderate persistent asthma, uncomplicated; I10 Essential (primary) hypertension | CPT/HCPCS: 99214 ==

== ENCOUNTER → 2024-02-28 08:16 | Outpatient (BNVA) | payer MEDICARE, OTHER, SELFPAY | PROVIDERS: PCP Electrodiagnostic Medicine; Visit Provider Nurse Practitioner Family | DX: L30.9 Dermatitis, unspecified (principal); D18.01 Hemangioma of skin and subcutaneous tissue; L57.0 Actinic keratosis; L73.8 Other specified follicular disorders; L81.4 Other melanin hyperpigmentation; L57.8 Other skin changes due to chronic exposure to nonionizing radiation | CPT/HCPCS: 17000; 99203 ==

== ENCOUNTER 2024-03-06 07:29 | Outpatient (CLI) | payer MEDICARE, OTHER, SELFPAY ==
--- NOTE | 2024-03-06 07:45 | USCV_ITS ---
Padma Jose Age: 68 Gender: F : 1955 Exam Date: 03/06/2024 07:48 Ordering Phys: Waldo Viera M.D ([email or web address]) Technologist: [place] [facility] [place]: BP: 106 / 65 HR: 55 Rhythm: Sinus Technical Quality: Adequate MEASUREMENTS (Male / Female) Normal Values 2D ECHO LV Diastolic Diameter PLAX 3.5 cm 4.2 - 5.9 / 3.9 - 5.3 cm IVS Diastolic Thickness 1.1 cm 0.6 - 1.0 / 0.6 - 0.9 cm IVS Systolic Thickness 1.3 cm LVPW Diastolic Thickness 1.2 cm 0.6 - 1.0 / 0.6 - 0.9 cm LVPW Systolic Thickness 1.4 cm LVOT Diameter 1.9 cm LV Ejection Fraction 2D Teich 67.9 % LV Ejection Fraction MOD 2C 65.4 % LV Ejection Fraction 2C AL 67.5 % LA Diameter 3.2 cm RA Systolic Volume 4C AL 62.3 ml RA Systolic Volume 4C MOD 60.9 ml Aorta at Sinotubular Diameter 2.4 cm M-MODE LA Ao Ratio MM 0.9 AV Cusp Separation MM 1.5 cm DOPPLER AV Peak Velocity 224.0 cm/s LVOT Peak Velocity 78.0 cm/s AV Area Cont Eq vti 1.3 cm squared AV Area Cont Eq pk 1.0 cm squared MV Peak Velocity 101.0 cm/s MV Area PHT 2.1 cm squared Mitral E to A Ratio 0.8 TV Peak Velocity 147.5 cm/s TR Peak Velocity 159.0 cm/s TR Peak Gradient 10.1 mmHg TV Peak E Velocity 95.0 cm/s Right Atrial Pressure 3.0 mmHg Pulmonary Artery Systolic Pressu 13.1 mmHg PV Peak Velocity 69.3 cm/s FINDINGS Left Ventricle Left ventricle is normal size. LV systolic function is normal with EF of 60 to 65%. No regional wall motion abnormalities are seen. Grade 1 diastolic dysfunction. Right Ventricle Normal in size and function. Right Atrium Normal in size. Interatrial septum appears to be thickened versus echogenic structure attached to it. No change from before. Left Atrium Normal in size. Mitral Valve Structurally normal mitral valve. Mild mitral regurgitation. Aortic Valve Aortic valve is thickened. Mild aortic stenosis with aortic valve area of 1.34 cm squared and mean gradient of 11mmHg. Tricuspid Valve Insufficient TR jet to calculate RVSP Pulmonic Valve Not well-visualized. Pericardium Normal. Aorta Normal in size. IVC Not well-visualized CONCLUSIONS LV systolic function is normal with EF 60 to 65%. Grade 1 diastolic dysfunction. Mild mitral regurgitation. Mild aortic stenosis. Interatrial septal thickening noted again. Echogenic structure attached to it cannot be ruled out. No change from before Compared to prior echocardiogram from 2022, no significant changes are seen Waldo Viera MD (Electronically Signed) Final Date: 10 Mar 2024 22:33 S
== END 2024-03-06 07:30 | disposition home or self-care (01) ==
LOC: RAD 07:29
PROVIDERS: PCP Electrodiagnostic Medicine; Visit Provider Internal Medicine
DX: I35.0 Nonrheumatic aortic (valve) stenosis (principal); I50.30 Unspecified diastolic (congestive) heart failure; I34.0 Nonrheumatic mitral (valve) insufficiency; Q21.19 Other specified atrial septal defect
CPT/HCPCS: 93306

== ENCOUNTER 2024-08-02 09:42 | Outpatient (CLI) | payer MEDICARE, OTHER, SELFPAY ==
--- NOTE | 2024-08-02 09:40 | MM_ITS ---
WS: [id number] Bilateral screening 3D tomosynthesis digital mammogram, 08/02/2024 9:49 AM Clinical Data: SCREEN Comparison: 10/22/2022, 08/07/2021, 03/16/2019, 09/02/2017, 12/23/2015, 12/29/2015, 05/13/2014. Findings: No spiculated masses or clustered calcifications are seen. There are no secondary signs of carcinoma . There are scattered benign calcifications in both breasts along with vascular calcifications. MM/MM scr BI tomosynthesis [id number] Impression: Negative bilateral mammogram unchanged. Recommend annual screening mammograms. BIRADS: 1 - Negative. FOLLOW UP: 1 Year Follow-up DENSITY: The breasts are almost entirely fatty. The CAD tool checker was used
== END 2024-08-02 09:43 | disposition home or self-care (01) ==
PROVIDERS: PCP Electrodiagnostic Medicine; Visit Provider Electrodiagnostic Medicine
DX: Z12.31 Encounter for screening mammogram for malignant neoplasm of breast (principal); R92.1 Mammographic calcification found on diagnostic imaging of breast
CPT/HCPCS: 77063; 77067

== ENCOUNTER → 2024-08-29 11:30 | Outpatient (BNVA) | payer MEDICARE, OTHER, SELFPAY | PROVIDERS: PCP Electrodiagnostic Medicine; Visit Provider Nurse Practitioner Family | DX: L57.0 Actinic keratosis (principal); L82.0 Inflamed seborrheic keratosis; L30.8 Other specified dermatitis; M71.341 Other bursal cyst, right hand | CPT/HCPCS: 17000; 17110; 99213 ==

== ENCOUNTER 2024-12-11 07:52 | Outpatient (CLI) | payer MEDICARE, OTHER, SELFPAY ==
--- NOTE | 2024-12-11 | ECG_ITS ---
[facility] Test Date: 2024-12-11 Pat Name: Padma Jose Department: Room: Gender: Female Resolution Specialist: : 1955 Requested By: Reginald Villar Order Number: [id number] Loy MD: BENTLEY AVERY Interpretive Statements Lung unchanged pre/post procedure; Intraprocedure shortess of breath; Symptoms resoled by discharge NOTE: Please note that this is the electrocardiogram portion of the Lexiscan/Sestamibi stress test. The perfusion scan will be documented separately. DATA: Baseline heart rate was 58 beats per minute. Baseline blood pressure was 142/107 millimeters of mercury. Target heart rate was 150. Maximum heart rate achieved was 73. which was 48 % of the predicted target heart rate. Maximum blood pressure was 159/110 millimeters of mercury. The reason for ending the test was completion of the protocol. The patient did not experience any symptoms. ELECTROCARDIOGRAM: BASELINE: Sinus bradycardia normal axis. Otherwise, no ST-T changes suggestive of ischemia noted. No arrhythmia noted. EXERCISE: After Lexiscan injection, no ST-T changes suggestive of ischemic noted. No arrhythmia noted. CONCLUSION: Please note due to baseline abnormality of the EKG specificity and sensitivity of the EKG portion of LexiScan MIBI stress test will be low 1. EKG not suggestive of ischemia 2. Lexiscan injection unremarkable. 3. Perfusion scan will be documented separately. Electronically Signed On 12-30-2024 18:59:26 CDT by BENTLEY AVERY [email or web address] [id number]
--- NOTE | 2024-12-11 07:56 | USCV_ITS ---
Padma Jose Age: 69 Gender: F : 1955 Exam Date: 12/11/2024 08:05 Ordering Phys: Reginald Quevedo DO Technologist: Exam [place] [facility] [place] Indication: as cp BP: 160 / 100 HR: 56 Rhythm: Sinus Technical Quality: Adequate MEASUREMENTS (Male / Female) Normal Values 2D ECHO LV Diastolic Diameter PLAX 4.8 cm 4.2 - 5.9 / 3.9 - 5.3 cm IVS Diastolic Thickness 1.1 cm 0.6 - 1.0 / 0.6 - 0.9 cm IVS Systolic Thickness 1.8 cm LVPW Diastolic Thickness 1.3 cm 0.6 - 1.0 / 0.6 - 0.9 cm LVPW Systolic Thickness 1.7 cm LV Ejection Fraction 2D Teich 69.0 % LV Ejection Fraction MOD 4C 58.0 % LV Ejection Fraction MOD 2C 73.9 % LV Ejection Fraction 2C AL 74.8 % LA Diameter 2.0 cm RA Systolic Volume 4C AL 28.8 ml RA Systolic Volume 4C MOD 27.5 ml LA Sys Volume AL 51.8 cm cubed LA Sys Volume Index AL 21.9 cm cubed/m squared M-MODE LA Ao Ratio MM 1.2 AV Cusp Separation MM 1.7 cm DOPPLER AV Peak Velocity 267.0 cm/s LVOT Peak Velocity 98.0 cm/s MV Peak Velocity 107.0 cm/s MV Area PHT 2.4 cm squared Mitral E to A Ratio 0.8 TV Peak Velocity 168.5 cm/s TR Peak Velocity 185.0 cm/s TR Peak Gradient 13.7 mmHg TV Peak E Velocity 91.0 cm/s PV Peak Velocity 114.0 cm/s FINDINGS Left Ventricle Normal left ventricular size, systolic function and wall thickness, with no regional wall motion abnormalities. Left ventricular ejection fraction is estimated at 60 %. Grade I/IV diastolic dysfunction (abnormal relaxation filling pattern), normal to mildly elevated filling pressures. Right Ventricle The right ventricle is normal in size and function. Right Atrium The right atrium is normal in size. Left Atrium The left atrium is normal in size. Mitral Valve Mildly thickened mitral valve. No mitral valve stenosis. Trace mitral valve regurgitation. Aortic Valve Moderate aortic valve calcification. No aortic valve stenosis. Trace aortic valve regurgitation. Tricuspid Valve Structurally normal tricuspid valve without significant stenosis or regurgitation. Pulmonary artery systolic pressure is normal. Pulmonic Valve Structurally normal pulmonic valve without significant stenosis. There is no pulmonic regurgitation. Pericardium Normal pericardium without effusion. Aorta Normal ascending aorta dimension. IVC The inferior vena cava appears normal. CONCLUSIONS Normal left ventricular size, systolic function and wall thickness, with no regional wall motion abnormalities. Left ventricular ejection fraction is estimated at 60 %. Grade I/IV diastolic dysfunction (abnormal relaxation filling pattern), normal to mildly elevated filling pressures. Moderate aortic valve calcification. No aortic valve stenosis. Trace aortic valve regurgitation. There is no pericardial effusion. Right atrial pressure is around 5 mm of mercury. Jacqueline Pineda MD (Electronically Signed) Final Date: 24 December 2024 10:06 S
--- NOTE | 2024-12-11 08:24 | NMCV_ITS ---
NM radha perf SPECT r/s* [id number] Padma Jose Age: 69 Gender: F : 1955 Exam Date: 12/11/2024 08:24 Ordering Phys: Reginald Quevedo DO Technologist: ELTON Eid Exam Location: [facility] Indications: cp STRESS TEST Please [facility] IMAGE PROTOCOL Rest/Stress 1 Lexiscan Day Radiopharmaceutical Dose (mCi) Administration Site Administered by Rest: Tc-99m 10.3 IV Farnaz Grimes, MANAGER STARS Sestamibi Stress:Tc-99m 32.9 IV Farnaz Grimes, MANAGER STARS Sestamibi Rest: 11-Dec-2024 60 Discovery 630 Stress: 11-Dec-2024 30 Discovery 630 0.4mg Lexiscan. SPECT RESULTS Technical Quality: Raw Data Analysis: Image Corrections: Summed Stress Score: 0 Summed Rest Score: 0 Summed Difference Score: 0 PERFUSION FINDINGS FUNCTIONAL RESULTS (calculated via Gated SPECT) Stress Image LV EF (%): 85 Stress EDV (mL):74 TID: 1.65 Stress ESV (mL):11 FUNCTIONAL FINDINGS: There is normal left ventricular systolic function. IMPRESSIONS Myocardial perfusion imaging is normal. Jacqueline Pineda MD (Electronically Signed) Final Date: 11 December 2024 22:05 S
[2024-12-11 09:14] VITALS: BMI 41.5
[2024-12-11] MEDS: regadenoson 0.4 Mg/5 ml Syringe IVP (10:18)
[2024-12-11 10:29] VITALS: BP 138/96; PULSE 67
== END 2024-12-11 07:53 | disposition home or self-care (01) ==
LOC: RAD 07:53 → CDL 09:01
PROVIDERS: PCP Electrodiagnostic Medicine; Visit Provider Electrodiagnostic Medicine
DX: R07.9 Chest pain, unspecified (principal); R93.1 Abnormal findings on diagnostic imaging of heart and coronary circulation; I05.9 Rheumatic mitral valve disease, unspecified; I35.8 Other nonrheumatic aortic valve disorders
CPT/HCPCS: 36415; 78452; 93017; 93306; 96374; A9500; J2785

== ENCOUNTER 2025-01-01 06:59 | Emergency (ER) | payer OTHER, MEDICARE, SELFPAY ==
[2025-01-01 07:10] VITALS: BP 147/94; PULSE 70; RESP 18; TEMP 36.8; O2SAT 95; BMI 41.5
--- NOTE | 2025-01-01 07:13 | ECG_ITS ---
[facility] Test Date: 2025-01-01 Pat Name: Padma Jose Department: Room: Gender: Female Learning Center Coordinator: : 1955 Requested By: Farrukh Ortega Order Number: [id number] Loy MD: Wolf Hammond M.D. Measurements Intervals [place] Rate: 70 P: 64 OK: 204 QRS: 7 QRSD: 79 T: 40 QT: 375 QTc: 406 Interpretive Statements SINUS RHYTHM ANTEROSEPTAL MYOCARDIAL INFARCTION , PROBABLY OLD [40+ ms Q WAVE IN V1-V4] Compared to ECG 05/29/2023 01:38:02 No significant changes Electronically Signed On 01-01-2025 19:18:36 CDT by Wolf Hammond M.D. [email or web address]
--- NOTE | 2025-01-01 07:13 | XRR_ITS ---
PROCEDURE INFORMATION: Exam: XR Chest Exam date and time: 01/01/2025 7:23 AM Age: 69 years old Clinical indication: Cough and dyspnea; Additional info: Dyspnea/cough TECHNIQUE: Imaging protocol: Radiologic exam of the chest. Views: 1 view. COMPARISON: CR XR chest 1V portable [id number] 05/28/2023 11:29 PM FINDINGS: Lungs: Pulmonary vessels within normal limits. No significant change of bilateral calcified nodules suggesting benign granulomas. Pleural spaces: No pneumothorax. Heart/Mediastinum: Cardiomediastinal silhouette is within normal limits. Bones/joints: Unremarkable. XR/XR chest 1V portable [id number] IMPRESSION: No acute pulmonary finding
--- NOTE | 2025-01-01 07:13 | W.ED.SOB ---
HPI - SOB/Dyspnea General: Chief Complaint: Shortness of Breath/Dyspnea Stated Complaint: sob Time Seen by Provider: 01/01/25 07:12 History of Present Illness: HPI Narrative: 69-year-old female presents emergency room complaining of shortness of breath. She arrives by EMS. EMS reports she was tachypneic on their arrival she was given 4 Zofran 125 Solu-Medrol DuoNeb and albuterol treatments and route by time she arrives here she is having no respiratory distress she is not tachypneic no audible wheezing. Patient reports the last few days she has had increasing shortness of breath minimally exacerbated by exertion. She denies chest pain. Patient has a mild productive cough of clear mucus. Patient feels her symptoms are due to 'air stacking' from her talking on the phone all of the time. Associated symptoms: Deny abdominal pain, chest pain or fever(s) Related Data Home Medications ?Medication ?Instructions ?Recorded ?Confirmed albuterol sulfate 0.63 mg/3 mL 0.63 mg inhalation QID PRN Allergy 03/19/20 01/01/25 solution for nebulization Symptoms budesonide 0.25 mg/2 mL suspension 0.25 mg inhalation BID PRN 06/18/22 01/01/25 for nebulization (Pulmicort) Shortness Of Breath pantoprazole 40 mg tablet,delayed 40 mg PO DAILY PRN Acid Reflux 02/16/23 01/01/25 release (Protonix) albuterol sulfate 90 mcg/actuation 2 puff inhalation Q6H PRN 01/01/25 01/01/25 aerosol inhaler Shortness Of Breath budesonide-formoterol HFA 160 2 puff inhalation BID 01/01/25 01/01/25 mcg-4.5 mcg/actuation aerosol inhaler (Symbicort) diltiazem HCl 180 mg 180 mg PO DAILY 01/01/25 01/01/25 capsule,extended release 24 hr metoprolol succinate 50 mg 50 mg PO QPM 01/01/25 01/01/25 tablet,extended release 24 hr olmesartan 40 mg tablet 40 mg PO QPM 01/01/25 01/01/25 Previous Rx's ?Medication ?Instructions ?Recorded furosemide 20 mg tablet (Lasix) 20 mg PO QAM PRN edema #90 tabs 02/16/23 clotrimazole 10 mg jd 10 mg mucous membrane 5XD #60 tabs 01/01/25 prednisone 20 mg tablet 20 mg PO TID #15 tabs 01/01/25 Allergies Allergy/AdvReac Type Severity Reaction Status Date / Time amlodipine Allergy Severe SWELLING Verified 02/21/24 14:32 LEG levothyroxine sodium (From Allergy Mild MOOD Verified 02/21/24 14:32 Synthroid) CHANGES lisinopril Allergy Mild TROUBLE Verified 02/21/24 14:32 BREATHING Penicillins Allergy ALGY-Hives Verified 02/21/24 14:32 Sulfa (Sulfonamide Allergy ALGY-Hives Verified 02/21/24 14:32 Antibiotics) Review of Systems Const: Denies: fever(s) or chills Card: Denies: chest pain Resp: Denies: dyspnea GI: Denies: abdominal pain : Denies: dysuria, urinary frequency or urinary urgency Musc: Denies: neck pain or back pain Skin/Breast: Denies: rash PFSH ED PFSH: Medical History Hiatal hernia Acid reflux Adenomyomatosis of gallbladder Anxiety Diverticulosis Herpes simplex Hyperlipidemia Hypertension H/O methicillin resistant Staphylococcus aureus Asthma Diabetes COPD (chronic obstructive pulmonary disease) Abdominal pain Chronic constipation Surgical History H/O section H/O hemorrhoidectomy H/O: hysterectomy History of tonsillectomy H/O myomectomy History of colonoscopy Family History Grandmother Lung disease Osteoporosis Mother Hypertension Stroke Father Cancer leukemia Unknown Lung disease child with astma Social History Smoking and tobacco/nicotine status: never used tobacco/nicotine Alcohol intake: never Substance/Drug Use: never Adopted: No Caregiver/support person: Yes Lives independently: Yes Household members: spouse Housing: House Marital status: / service: No Current occupational status: employed Current occupational exposures/hazards: No Pets and animals: No Sexually active: No Do you think of yourself as: Straight/Heterosexual Current gender identity: Female Kalie/Taoist: Gnosticism Special kalie needs: No Agree to transfusion: No Physical Exam Const: COMMON NORMALS: no acute distress GENERAL APPEARANCE: cooperative and comfortable ORIENTATION/CONSCIOUSNESS: Yes awake, Yes oriented to person, Yes oriented to place and Yes oriented to time HENMT: COMMON NORMALS: normocephalic, atraumatic and hearing grossly normal bilaterally HEAD & SCALP: normocephalic and atraumatic Resp: COMMON NORMALS: normal respiratory effort, No retractions, No use of accessory muscles and clear to auscultation bilaterally AUSCULTATION: clear to auscultation bilaterally Cardio: COMMON NORMALS: regular rate, regular rhythm and No murmurs present (Cardio) RATE: regular rate RHYTHM: regular rhythm HEART SOUNDS: Murmur heart sound present systolic (12/20) GI: COMMON NORMALS: Soft to palpation and No hepatosplenomegaly present AUSCULTATION: Yes normoactive bowel sounds PALPATION: Yes Soft to palpation, No Tenderness to palpation present (GI), No Guarding due to palpation present (GI) and Yes No hepatosplenomegaly present Extremity: COMMON NORMALS: normal to inspection, capillary refill normal, no clubbing, cyanosis or edema, no calf tenderness and no pedal edema Neuro: SENSORIUM/ORIENTATION: Yes oriented to person, Yes oriented to place and Yes oriented to time Skin: COMMON NORMALS: no rashes or lesions noted GENERAL SKIN EXAM: no rashes or lesions noted Course Vital Signs: Vital signs: Vital Signs Temperature 98.2 F 01/01/25 07:10 Pulse Rate 73 01/01/25 09:47 Respiratory Rate 18 01/01/25 09:47 Blood Pressure 156/93 01/01/25 09:34 Pulse Oximetry 94 01/01/25 09:47 Oxygen Delivery Me thod Room Air 01/01/25 09:47 Clincial Decision Support The following clinical decision support tools were used to aid in care of the patient HEART Score -> History: Slightly Suspicous, EKG: Non-specific Changes, Age: 65 or more yrs, Risk Factors: No Risk Factors Known, Troponin: Baseline Trop <16 ng/L. Resulting HEART Score: 3. MDM - SOB/Dyspnea Medical Decision Making Patient not having any chest pain EKG shows questionable changes in the anterior leads with but no acute ST changes. Troponins had a slight increase but was less than for both troponins less than 16. Patient primarily concerned about wheezing. I think this is more of an asthma issue. Will go ahead and discharge her home on steroid taper set her up for an outpatient Lexiscan sestamibi stress test. Heart score of 3. Medical Records I reviewed the patient's medical records. Lab Data I reviewed the patient's lab results. 01/01/25 07:34 01/01/25 07:34 Labs/Radiology: Radiology Impressions Chest X-Ray 01/01/25 07:13 IMPRESSION: No acute pulmonary finding Laboratory Results WBC 8.88 10^3/uL (3.29-11.43) 01/01/25 07:34 RBC 5.08 10^6/uL (3.85-5.65) 01/01/25 07:34 Hgb 13.50 g/dL (11.27-16.99) 01/01/25 07:34 Hct 42.4 % (36-47) 01/01/25 07:34 MCV 83.5 fl (85-98) L 01/01/25 07:34 MCH 26.6 pg (27-33) L 01/01/25 07:34 MCHC 31.8 g/dL (30-55) 01/01/25 07:34 RDW 13.7 % (12.1-15.1) 01/01/25 07:34 Plt Count 302 10^3/cmm (157-399) 01/01/25 07:34 MPV 10.2 fL (7.4-10.4) 01/01/25 07:34 Neut % (Auto) 59.6 % 01/01/25 07:34 Lymph % (Auto) 27.8 % 01/01/25 07:34 [place] % (Auto) 5.4 % 01/01/25 07:34 Eos % (Auto) 6.4 % 01/01/25 07:34 Baso % (Auto) 0.6 % 01/01/25 07:34 Neut # (Auto) 5.29 10^3/uL (1.8-7.7) 01/01/25 07:34 Lymph # (Auto) 2.5 10^3/uL (0.8-4.8) 01/01/25 07:34 [place] # (Auto) 0.5 10^3/uL (0.2-0.9) 01/01/25 07:34 Eos # (Auto) 0.6 10^3/uL (0.0-0.8) 01/01/25 07:34 Baso # (Auto) 0.1 10^3/uL (0.0-0.1) 01/01/25 07:34 Nucleated RBC % (auto) 0 % 01/01/25 07:34 Nucleated RBCs # 0.0 /100WBC 01/01/25 07:34 Sodium 137 mmol/L (136-145) 01/01/25 07:34 Potassium 4.3 mmol/L (3.5-5.1) 01/01/25 07:34 Chloride 101 mmol/L (98-107) 01/01/25 07:34 Carbon Dioxide 24 mmol/L (22-29) 01/01/25 07:34 Anion Gap 16.3 (5-19) 01/01/25 07:34 BUN 15 mg/dL (8-23) 01/01/25 07:34 Creatinine 1.0 mg/dL (0.5-0.9) H 01/01/25 07:34 GFR Calculation 54.8 mL/min (90-130) L 01/01/25 07:34 Glucose 147 mg/dL (65-115) H 01/01/25 07:34 Calculated Osmolality 288 mOsm/kg (285-295) 01/01/25 07:34 Calcium 8.6 mg/dL (8.5-10.5) 01/01/25 07:34 Total Bilirubin 0.3 mg/dL (0.15-1.2) 01/01/25 07:34 AST 22 U/L (0-32) 01/01/25 07:34 ALT 21 U/L (0-33) 01/01/25 07:34 Alkaline Phosphatase 112 U/L (35-105) H 01/01/25 07:34 Troponin T Baseline 12 ng/L (0-10) H 01/01/25 07:34 Troponin T 120 Minute 15.48 ng/L (0-10) H 01/01/25 09:28 Delta Troponin T 3.48 ABS# (0-10) 01/01/25 09:28 Total Protein 7.1 g/dL (6.6-8.7) 01/01/25 07:34 Albumin 3.7 g/dL (3.5-5.2) 01/01/25 07:34 Globulin 3.4 g/dL (1.3-4.6) 01/01/25 07:34 Influenza A (PCR) Negative (Negative) 01/01/25 07:17 Influenza Type B (PCR) Negative (Negative) 01/01/25 07:17 RSV (PCR) Negative (Negative) 01/01/25 07:17 SARS-CoV-2 (PCR) Negative (Negative) 01/01/25 07:17 All radiology interpretation(s) finalized by discharge Discharge Plan Discharge Patient Disposition: Home Clinical Impression: Moderate persistent asthma Condition: Stable Prescriptions: New prednisone 20 mg tablet 20 mg PO TID Qty: 15 0RF Rx Instructions: 1 p.o. 3 times daily x3 days, 1 p.o. twice daily x2 days, 1 p.o. daily x2 days clotrimazole 10 mg jd 10 mg mucous membrane 5XD Qty: 60 0RF No Action albuterol sulfate 0.63 mg/3 mL solution for nebulization 0.63 mg INHALATION QID PRN (Reason: Allergy Symptoms) budesonide [Pulmicort] 0.25 mg/2 mL suspension for nebulization 0.25 mg INHALATION BID PRN (Reason: Shortness Of Breath) pantoprazole [Protonix] 40 mg tablet,delayed release (DR/EC) 40 mg PO DAILY PRN (Reason: Acid Reflux) furosemide [Lasix] 20 mg tablet 20 mg PO QAM PRN (Reason: edema) Qty: 90 3RF diltiazem HCl 180 mg capsule,extended release 24hr 180 mg PO DAILY albuterol sulfate 90 mcg/actuation Hfa Aerosol Inhaler 2 puff INHALATION Q6H PRN (Reason: Shortness Of Breath) metoprolol succinate 50 mg tablet extended release 24 hr 50 mg PO QPM olmesartan 40 mg tablet 40 mg PO QPM budesonide-formoterol [Symbicort] 160-4.5 mcg/actuation HFA aerosol inhaler 2 puff inhalation BID Discharge Orders: Discharge ED (Routine); Ordered 01/01/25 Ordered By: Farrukh Schneider Referrals: Reginald Quevedo DO [Primary Care Provider] - Discharge Diet: Usual diet Discharge Activity: Resume usual activity Patient Instructions: Opioid Safety, Pain Management Activity Restrictions/Additional Instructions: Thank you for choosing [facility] for your healthcare needs today. It is very important that you follow up as instructed or that you return to the Emergency Department should you have concerns or if your condition changes or worsens in any way. You were seen today with complaints shortness of breath your vital signs were stable while you were in the emergency room. Your chest x-ray is normal swab for flu COVID and RSV were all negative. Reviewed recent echo you had recently. There is no sign of any decompensated heart failure on your exam today. Recommend a prednisone taper. Do not believe at this time antibiotics would be helpful. Do recommend you follow-up with your primary care doctor within the next week. Print Language: Greek Coding Level of Care Code ED Clinic Nurse for Jg Truong
[2025-01-01 07:41] LABS: Basophils # 0.1 10^3/uL (0.0-0.1); Basophils % 0.6 %; Eosinophils # 0.6 10^3/uL (0.0-0.8); Eosinophils % 6.4 %; Hematocrit 42.4 % (36-47); Lymphocytes # 2.5 10^3/uL (0.8-4.8); Lymphocytes % 27.8 %; Mean Corpuscular HGB Conc 31.8 g/dL (30-55); Mean Corpuscular Hemoglobin 26.6 pg (27-33); Mean Corpuscular Volume 83.5 fl (85-98); Mean Platelet Volume 10.2 fL (7.4-10.4); Monocytes # 0.5 10^3/uL (0.2-0.9); Monocytes % 5.4 %; Neutrophils # 5.29 10^3/uL (1.8-7.7); Neutrophils % 59.6 %; Nucleated Red Blood Cells % 0 %; Platelet Count 302 10^3/cmm (157-399); Red Blood Count 5.08 10^6/uL (3.85-5.65); Red Cell Distribution Width 13.7 % (12.1-15.1); White Blood Count 8.88 10^3/uL (3.29-11.43)
[2025-01-01 07:58] LABS: Influenza A NEGATIVE (Negative); Influenza B NEGATIVE (Negative); Respiratory Syncytial Virus Ce NEGATIVE (Negative); SARS-CoV-2 PCR NEGATIVE (Negative)
[2025-01-01 08:01] LABS: Alanine Aminotransferase 21 U/L (0-33); Albumin Level 3.7 g/dL (3.5-5.2); Alkaline Phosphatase 112 U/L (35-105); Blood Urea Nitrogen 15 mg/dL (8-23); Calcium 8.6 mg/dL (8.5-10.5); Carbon Dioxide 24 mmol/L (22-29); Chloride 101 mmol/L (98-107); Creatinine Clr Calc Pharmacy 65.7468; Globulin 3.4 g/dL (1.3-4.6); Glomerular Filtration Rate 54.8 mL/min (90-130); Glucose 147 mg/dL (65-115); Osmolality Calculated 288 mOsm/kg (285-295); Sodium 137 mmol/L (136-145); Total Bilirubin 0.3 mg/dL (0.15-1.2); Total Protein 7.1 g/dL (6.6-8.7)
[2025-01-01 08:02] LABS: Troponin(5th) Baseline 12 ng/L (0-10)
[2025-01-01 08:09] LABS: Anion Gap 16.3 (5-19); Potassium 4.3 mmol/L (3.5-5.1)
[2025-01-01 08:10] LABS: Aspartate Amino Transferase 22 U/L (0-32)
[2025-01-01 08:45] VITALS: BP 163/107; PULSE 71; O2SAT 92
[2025-01-01 09:34] VITALS: BP 156/93; PULSE 73; O2SAT 94
[2025-01-01 09:47] VITALS: PULSE 73; RESP 18; O2SAT 94
[2025-01-01 09:50] LABS: Troponin 5 2HR 15.48 ng/L (0-10); Troponin 5 2HR Delta 3.48 ABS# (0-10)
[2025-01-01] MEDS: ipratropium-albuterol 3 mL Neb INHALATION (09:52)
--- NOTE | 2025-01-03 16:18 | DCPLANNER ---
faxed outpatient order to scheduling for lexiscan
== END 2025-01-01 10:03 | disposition home or self-care (01) ==
PROVIDERS: Emergency Provider Family Medicine; PCP Electrodiagnostic Medicine
DX: J45.909 Unspecified asthma, uncomplicated (principal); Z11.52 Encounter for screening for COVID-19; J44.9 Chronic obstructive pulmonary disease, unspecified; E11.9 Type 2 diabetes mellitus without complications; E78.5 Hyperlipidemia, unspecified; I10 Essential (primary) hypertension
CPT/HCPCS: 36415; 71045; 80053; 84484; 85025; 87637; 93005; 94640; 99285; J9999

== ENCOUNTER → 2025-01-14 14:46 | Outpatient (BNVA) | payer MEDICARE, OTHER, SELFPAY | PROVIDERS: PCP Electrodiagnostic Medicine; Visit Provider Internal Medicine | DX: I35.0 Nonrheumatic aortic (valve) stenosis (principal); J45.40 Moderate persistent asthma, uncomplicated; I10 Essential (primary) hypertension | CPT/HCPCS: 99214 ==

== ENCOUNTER 2025-02-26 12:54 | Outpatient (CLI) | payer MEDICARE, OTHER, SELFPAY | END 2025-02-26 12:55 | disposition home or self-care (01) | LOC: RT 12:55 | PROVIDERS: PCP Electrodiagnostic Medicine; Visit Provider Electrodiagnostic Medicine | DX: J45.20 Mild intermittent asthma, uncomplicated (principal) | CPT/HCPCS: 94060; 94726; 94729 ==

== ENCOUNTER → 2025-04-24 11:43 | Outpatient (BNVA) | payer MEDICARE, OTHER, SELFPAY | PROVIDERS: PCP Electrodiagnostic Medicine; Visit Provider Podiatrist Foot & Ankle Surgery | DX: M79.672 Pain in left foot (principal); B35.1 Tinea unguium; M76.62 Achilles tendinitis, left leg | CPT/HCPCS: 73630; 99213 ==

== ENCOUNTER 2025-05-29 07:02 | Outpatient (CLI) | payer MEDICARE, OTHER, SELFPAY ==
--- NOTE | 2025-05-29 07:07 | MR_ITS ---
WS: [id number] MRI LUMBAR SPINE NONCONTRAST HISTORY: Lumbar pain COMPARISON: Radiograph 05/08 TECHNIQUE: Sagittal and axial multisequence imaging is submitted. Normal lumbar alignment with no compression fractures or marrow edema. Mild disc space narrowing and desiccation at L4-5 and L5-S1. Conus terminates normally at T12. L1-L2: Mild facet arthritis. No stenosis. L2-L3: Mild annular disc bulging encroaching and narrowing the subarticular recesses. Mild ligamentum flavum and bilateral facet arthritis. Mild bilateral subarticular recess narrowing encroaching upon the traversing L3 nerve roots. L3-L4: Mild annular disc bulging with mild osteophytic ridging. Ligamentum flavum and facet arthritis. Disc contacts the traversing L4 nerve roots in the subarticular recesses. Very mild RIGHT foraminal stenosis. Mild central stenosis. L4-L5: Diffuse disc bulging with a central disc protrusion. Narrowing of the central canal and the subarticular recesses. Mild facet arthritis. Osteophytic ridging around the vertebral bodies. Moderate central, subarticular recess and mild foraminal stenosis. Disc osteophyte contact on the traversing L5 nerve roots. L5-S1: Small rudimentary disc. There is a tiny central disc protrusion. Mild foraminal stenosis. Large bridging osteophyte LEFT anterior to the RIGHT between L4 and L5. Paravertebral soft tissues are negative. MR/MR lumbar spine wo con* [id number] IMPRESSION: 1. No acute marrow edema or fracture. 2. L4-5: Moderate central, subarticular recess and LEFT foraminal stenosis due to disc osteophyte disease. There is mild contact on the traversing L5 nerve r oots. 3. L3-4: Mild central and RIGHT foraminal stenosis. Mild disc contact on the t raversing L4 nerve roots. 4. L2-3: Mild bilateral subarticular recess stenosis with contact on the trave rsing L3 nerve roots.
== END 2025-05-29 07:03 | disposition home or self-care (01) ==
LOC: RAD 07:03
PROVIDERS: PCP Electrodiagnostic Medicine; Visit Provider Electrodiagnostic Medicine
DX: M51.16 Intervertebral disc disorders with radiculopathy, lumbar region (principal); M48.061 Spinal stenosis, lumbar region without neurogenic claudication; M47.26 Other spondylosis with radiculopathy, lumbar region; M51.379 Other intervertebral disc degeneration, lumbosacral region without mention of lumbar back pain or lower extremity pain; M48.07 Spinal stenosis, lumbosacral region
CPT/HCPCS: 72148

== ENCOUNTER → 2025-06-12 07:54 | Outpatient (BNVA) | payer MEDICARE, OTHER, SELFPAY | PROVIDERS: PCP Electrodiagnostic Medicine; Visit Provider Podiatrist Foot & Ankle Surgery | DX: M76.62 Achilles tendinitis, left leg (principal) | CPT/HCPCS: 99214 ==

== ENCOUNTER 2025-07-03 08:36 | Outpatient (CLI) | payer MEDICARE, OTHER, SELFPAY ==
--- NOTE | 2025-07-03 08:45 | MR_ITS ---
WS: [id number] EXAMINATION: MR ankle LT wo con* [id number] ORDER DATE: 07/03/2025 8:50 AM COMPARISON: None. HISTORY: Achilles tendon tear CONTRAST: None. TECHNIQUE: Axial proton density fat sat, axial T1, sagittal proton density, sagittal STIR, coronal T2 fat sat, and coronal T1 sequences performed. FINDINGS: Bony protuberance of the dorsal superior calcaneus compatible with Asmita's deformity. Mild fusiform thickening of the Achilles tendon compatible with tendinosis. Fluid signal interstitial tears within the mid tendon and distal insertion. No full-thickness rupture. Normal bone marrow signal in the dorsal calcaneus. Tenosynovitis along the peroneal tendons. Soft tissue edema involving the lower leg and ankle. Joint arthritis at the talocalcaneal facet and talonavicular articulation. Normal talar dome. No other acute findings. MR/MR ankle LT wo con* [id number] IMPRESSION: 1. Asmita's deformity. 2. Fusiform thickening of the Achilles tendon compatible with tendinosis. 3. Tiny interstitial tears within the mid tendon and distal insertion 4. No full-thickness rupture.
== END 2025-07-03 08:37 | disposition home or self-care (01) ==
LOC: RAD 08:37
PROVIDERS: PCP Electrodiagnostic Medicine; Visit Provider Podiatrist Foot & Ankle Surgery
DX: S86.012A Strain of left Achilles tendon, initial encounter (principal); X58.XXXA Exposure to other specified factors, initial encounter
CPT/HCPCS: 73721

== ENCOUNTER → 2025-07-24 08:19 | Outpatient (BNVA) | payer MEDICARE, OTHER, SELFPAY | PROVIDERS: PCP Electrodiagnostic Medicine; Visit Provider Podiatrist Foot & Ankle Surgery | DX: Z09 Encounter for follow-up examination after completed treatment for conditions other than malignant neoplasm (principal); M76.62 Achilles tendinitis, left leg | CPT/HCPCS: 99213 ==

== ENCOUNTER 2025-08-09 18:08 | Emergency (ER) | payer MEDICARE, OTHER, SELFPAY ==
--- OUTSIDE RECORDS SUMMARY | 2025-08-09 18:17 | XMS_ITS | Clinical Summary ---
Author Organization [facility] tone Address 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 Active diltiazem SR 24 hour (DILTIA XT) 240 mg Oral CDCR Take 240 mg by mouth daily. Active losartan (COZAAR) 50 mg Oral Tab Take 50 mg by mouth daily. Active hydrochlorothia zide (HYDRODIURIL) 12.5 mg Oral Tab Take 12.5 mg by mouth daily. Active ezetimibe (ZETIA) 10 mg Oral Tab Take 10 mg by mouth daily. Active Vitamin E 1,000 unit Oral Tab Take by mouth. A ctive magnesium oxide (MAG-OX) 400 mg Oral Tab Take 400 mg by mouth daily. Active Cholecalciferol , Vitamin D3, (VITAMIN D) 1,000 unit Oral Tab Take by mouth. Activ e budesonide-form oterol (SYMBICORT) 160-4.5 mcg/Actuation Inhalation HFAA Take 2 Puffs by inhalation 2 times daily. 1 Inhaler 0 9 Active albuterol (PROVENTIL,VENT MIN) 90 mcg/Actuation Inhalation HFAA Take 2 Puffs by inhalation every 4 hours as needed for Wheezing and Shortness of Breath. 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 Gender Identity Not on file Sexual Orientation Not on file Last Filed Vital Signs Vital Sign Reading Time Taken Comments Blood Pressure 108/66 07/25/2009 11:37 AM CDT Pulse 102 07/25/2009 11:37 AM CDT Temperature 36.5 C (97.7 F) 07/25/2009 11:37 AM CDT Respiratory Rate 16 07/25/2009 11:3 7 AM CDT Oxygen Saturation 94% 07/25/2009 11: 37 AM CDT Inhaled Oxygen Concentration - - Weight 112.6 kg (248 lb 3.2 oz) 009 11:37 AM CDT Height - - Body Mass Index - - Plan of Treatment Health Maintenance Due Date Last Done Comments BREAST CANCER SCREENING 1994 DTAP/TDAP/TD VACCINES (1 - Tdap) 06/09/1999 06/08/19 99 COLORECTAL SCREENING 1999 Colorectal Cancer Screening 1999 FIT-DNA Q 3 years 1999 FIT/FOBT Q 1 year 1999 Flex Sig/CT Colonography Q 5 years 1999 PNEUMOCOCCAL VACCINE 50+ YEARS (1 of 1 - PCV) 11/02/19 05 ZOSTER VACCINE (1 of 2) 2004 OSTEOPOROSIS SCREENING 2019 INFLUENZA VACCINE (#1) 2025 RSV VACCINE (60+ or ) (1 - 1-dose 75+ series) 2029 Insurance JEANNINE
--- OUTSIDE RECORDS SUMMARY | 2025-08-09 18:17 | XMS_ITS | Encounter Summary ---
Author Organization [facility] Address [address] [place] [address] Care Team Providers Care Athletics Teacher Name Role Phone Unavailable Primary Care Provider Unavailabl e Encounter Details Date Type Department Care Team (Latest Contact Info) Description 04/30/2002 Outpatient Historical [facility] Cardiology [facility] [address] [place] [address] Maurice Rob MD NO ADDRESS ON FILE PRECORDIAL PAIN (Primary Dx) Social History Tobacco Use Types Packs/Day Years Used Date Smoking Tobacco: Never Assessed Comments Unknown Sex and Gender Information Value Date Recorded Sex Assigned at Not on file Legal Sex Female 5:37 AM [facility] [employer] Gender Identity Not on file Sexual Orientation Not on file documented as of this encounter Plan of Treatment Not on file documented as of this encounter Visit Diagnoses Diagnosis Precordial pain- Primary documented in this encounter
--- OUTSIDE RECORDS SUMMARY | 2025-08-09 18:18 | XMS_ITS | Data Portability ---
Author Organization SHAQ Chad Rowe [facility], L.LSomCSom, [facility] Address [facility] [address] Assessment Encounter Date Assessment Date Assessment LastModified by Organization Details LastModified Time 04/10/2025 04/10/2025 Document scribed by Teresa Mcmullenibe. I was present during interview and exam. I have reviewed and agree with above documentation . Dr. Reginald Quevedo. [email or web address] Not available 04/10/2025 14:54:12 04/29/2025 04/29/2025 Document scribed by Teresa Mcmullenibe. I was present during interview and exam. I have reviewed and agree with above documentation . Dr. Reginald Quevedo. Clindamycin dkiest Not available 04/29/2025 15:37:25 06/12/2025 06/12/2025 Document scribed by Teresa Mcmullenibe. I was present during interview and exam. I have reviewed and agree with above documentation . Dr. Reginald Quevedo. dkiest Not available 06/12/2025 10:49:02 07/24/2025 07/24/2025 Document scribed by Teresa Mcmullen. I was present during interview and exam. I have reviewed and agree with above documentation . Dr. Reginald Quevedo. [email or web address] Not available 07/24/2025 12:00:52 Plan of Treatment Reminders Order Date Submit Date Provider Last Modified By Organization Details Last Modified Time Details Appointments None recorded. Lab respirator y allergen panel - [facility] 2024 025 [email or web address] [facility], [address], [address], [place], [address], 09:24:10 Referral None recorded. Procedures None recorded. Surgeries None recorded. Imaging XR, lumbosacra l spine, 2 or 3 view 2024 [email or web address] [facility] ([facility] [address] [place], [address], 11:56:51 Medication Orders Breztri Aerosphere 160 mcg-9mcg-4 .8mcg/actu ation HFA aerosol inhaler 2024 025 [email or web address] 7 [facility], [address] [place] [address], [facility] [address], [place], [address], 12:56:04 prednisone 20 mg tablet 2024 025 [email or web address] 7 [facility], [address] [place] [address], [facility], [place], [address], 12:56:04 azithromyc in 250 mg tablet 2024 025 [email or web address] 7 [facility], [address] [place] [address], [facility], [place], [address], 12:56:04 Breztri Aerosphere 160 mcg-9mcg-4 .8mcg/actu ation HFA aerosol inhaler 2024 025 [facility] [address], [place], [address], 16:17:24 diltiazem CD 180 mg capsule,ex tended release 24 hr 2024 025 [email or web address] 7 [facility] [address], [place], [address], 5 15:02:20 albuterol sulfate 2.5 mg/3 mL (0.083 %) solution for nebulizati on 2024 025 [email or web address] 7 [facility] [address], [place], [address], 5 15:02:20 budesonide 0.5 mg/2 mL suspension for nebulizati on 2024 025 [email or web address] 7 [facility] [address], [place], [address], 5 15:02:20 furosemide 20 mg tablet 2024 025 SANJUANITA [facility] [address], [place], [address], 5 09:58:03 clindamyci n HCl 300 mg capsule 2024 025 [facility], [address] [facility], [address], [place], [address], 5 05:01:32 valsartan 160 mg tablet 2024 025 [email or web address] [facility] [address], [place], [address], 5 15:15:14 Patient TargetsNo targets recorded. Patient InstructionsNo instructions recorded. Reason for Referral None Reported. Results Created Date Observation Date Name Description Value Unit Range Abnormal Flag Note LastModifiedBy Organization Detail LastModifiedTime 07/24/2007/31/2025 RESPI RATOR Y ALLER GY PANEL REGIO N VIII W/REF L dermatophago ides pteronyssinu s (D1) IgE 0.72 kU/L high Not Available [facility] [address] [place], [address], 07/31/2025 12:11:55 07/24/2007/31/2025 RESPI RATOR Y ALLER GY PANEL REGIO N VIII W/REF L class 2 Not Available [address], [address], 07/31/2025 12:11:55 07/24/2007/31/2025 RESPI RATOR Y ALLER GY PANEL REGIO N VIII W/REF L dermatophago ides farinae (D2) IgE 1.09 kU/L high Not Available [address], [address], 07/31/2025 12:11:55 07/24/2007/31/2025 RESPI RATOR Y ALLER GY PANEL REGIO N VIII W/REF L class 2 Not Available [address], [address], 07/31/2025 12:11:55 07/24/2007/31/2025 RESPI RATOR Y ALLER GY PANEL REGIO N VIII W/REF L penicillium notatum (M1) IgE <0.10 kU/L normal Not Available [address], [address], 07/31/2025 12:11:55 07/24/2007/31/2025 RESPI RATOR Y ALLER GY PANEL REGIO N VIII W/REF L class 0 Not Available [address], [address], 07/31/2025 12:11:55 07/24/2007/31/2025 RESPI RATOR Y ALLER GY PANEL REGIO N VIII W/REF L cladosporium herbarum (M2) IgE <0.10 kU/L normal Not Available [address], [address], 07/31/2025 12:11:55 07/24/2007/31/2025 RESPI RATOR Y ALLER GY PANEL REGIO N VIII W/REF L class 0 Not Available [address], [address], 07/31/2025 12:11:55 07/24/2007/31/2025 RESPI RATOR Y ALLER GY PANEL REGIO N VIII W/REF L aspergillus fumigatus (M3) IgE <0.10 kU/L normal Not Available [address], [address], 07/31/2025 12:11:55 07/24/2007/31/2025 RESPI RATOR Y ALLER GY PANEL REGIO N VIII W/REF L class 0 Not Available [address], [address], 07/31/2025 12:11:55 07/24/2007/31/2025 RESPI RATOR Y ALLER GY PANEL REGIO N VIII W/REF L alternaria alternata (M6) IgE <0.10 kU/L normal Not Available [address], [address], 07/31/2025 12:11:55 07/24/2007/31/2025 RESPI RATOR Y ALLER GY PANEL REGIO N VIII W/REF L class 0 Not Available [address], [address], 07/31/2025 12:11:55 07/24/2007/31/2025 RESPI RATOR Y ALLER GY PANEL REGIO N VIII W/REF L CAT dander (E1) IgE 2.49 kU/L high Not Available [address], [address], 07/31/2025 12:11:55 07/24/20 25 07/31/2025 RESPI RATOR Y ALLER GY PANEL REGIO N VIII W/REF L class 2 Not Available [address], [address], 07/31/2025 12:11:55 07/24/2007/31/2025 RESPI RATOR Y ALLER GY PANEL REGIO N VIII W/REF L dog dander (E5) IgE 3.88 kU/L high Not Available [address], [address], 07/31/2025 12:11:55 07/24/2007/31/2025 RESPI RATOR Y ALLER GY PANEL REGIO N VIII W/REF L class 3 Not Available [address], [address], 07/31/2025 12:11:55 07/24/2007/31/2025 RESPI RATOR Y ALLER GY PANEL REGIO N VIII W/REF L cockroach (I6) IgE 0.89 kU/L high Not Available [address], [address], 07/31/2025 12:11:55 07/24/2007/31/2025 RESPI RATOR Y ALLER GY PANEL REGIO N VIII W/REF L class 2 Not Available [address], [address], 07/31/2025 12:11:55 07/24/2007/31/2025 RESPI RATOR Y ALLER GY PANEL REGIO N VIII W/REF L maple (box elder) (T1) IgE 0.15 kU/L high Not Available [address], [address], 07/31/2025 12:11:55 07/24/2007/31/2025 RESPI RATOR Y ALLER GY PANEL REGIO N VIII W/REF L class 0/1 Not Available [address], [address], 07/31/2025 12:11:55 07/24/20 07/31/2025 RESPI RATOR Y ALLER GY PANEL REGIO N VIII W/REF L mountain cedar (T6) IgE 0.17 kU/L high Not Available [address], [address], 07/31/2025 12:11:55 07/24/20 25 07/31/2025 RESPI RATOR Y ALLER GY PANEL REGIO N VIII W/REF L class 0/1 Not Available [address], [address], 07/31/2025 12:11:55 07/24/2007/31/2025 RESPI RATOR Y ALLER GY PANEL REGIO N VIII W/REF L walnut tree (T10) IgE 0.11 kU/L high Not Available [address], [address], 07/31/2025 12:11:55 07/24/20 25 07/31/2025 RESPI RATOR Y ALLER GY PANEL REGIO N VIII W/REF L class 0/1 Not Available [address], [address], 07/31/2025 12:11:55 07/24/20 25 07/31/2025 RESPI RATOR Y ALLER GY PANEL REGIO N VIII W/REF L sycamore (T11) IgE 0.15 kU/L high Not Available [address], [address], 07/31/2025 12:11:55 07/24/2007/31/2025 RESPI RATOR Y ALLER GY PANEL REGIO N VIII W/REF L class 0/1 Not Available [address], [address], 07/31/2025 12:11:55 07/24/20 25 07/31/2025 RESPI RATOR Y ALLER GY PANEL REGIO N VIII W/REF L cottonwood (T14) IgE 0.23 kU/L high Not Available [address], [address], 07/31/2025 12:11:55 07/24/20 25 07/31/2025 RESPI RATOR Y ALLER GY PANEL REGIO N VIII W/REF L class 0/1 Not Available [address], [address], 07/31/2025 12:11:55 07/24/20 25 07/31/2025 RESPI RATOR Y ALLER GY PANEL REGIO N VIII W/REF L white libertad (T15) IgE 0.22 kU/L high Not Available [address], [address], 07/31/2025 12:11:55 07/24/20 25 07/31/2025 RESPI RATOR Y ALLER GY PANEL REGIO N VIII W/REF L class 0/1 Not Available [address], [address], 07/31/2025 12:11:55 07/24/20 25 07/31/2025 RESPI RATOR Y ALLER GY PANEL REGIO N VIII W/REF L oak (T7) IgE 0.16 kU/L high Not Available [address], [address], 07/31/2025 12:11:55 07/24/20 25 07/31/2025 RESPI RATOR Y ALLER GY PANEL REGIO N VIII W/REF L class 0/1 Not Available [address], [address], 07/31/2025 12:11:55 07/24/20 25 07/31/2025 RESPI RATOR Y ALLER GY PANEL REGIO N VIII W/REF L elm (T8) IgE 0.16 kU/L high Not Available [address] [place], [address], 07/31/2025 12:11:55 07/24/2007/31/2025 RESPI RATOR Y ALLER GY PANEL REGIO N VIII W/REF L class 0/1 Not Available [address], [address], 07/31/2025 12:11:55 07/24/2007/31/2025 RESPI RATOR Y ALLER GY PANEL REGIO N VIII W/REF L hickory/peca n tree (T22) IgE <0.10 kU/L normal Not Available [address], [address], 07/31/2025 12:11:55 07/24/2007/31/2025 RESPI RATOR Y ALLER GY PANEL REGIO N VIII W/REF L class 0 Not Available [address], [address], 07/31/2025 12:11:55 07/24/2007/31/2025 RESPI RATOR Y ALLER GY PANEL REGIO N VIII W/REF L white mulberry (T70) IgE <0.10 kU/L normal Not Available [address], [address], 07/31/2025 12:11:55 07/24/2007/31/2025 RESPI RATOR Y ALLER GY PANEL REGIO N VIII W/REF L class 0 Not Available [facility] [address] [address] [place], [address], 07/31/2025 12:11:55 07/24/2007/31/2025 RESPI RATOR Y ALLER GY PANEL REGIO N VIII W/REF L bermuda grass (g2) IgE 0.12 kU/L high Not Available [address], [address], 07/31/2025 12:11:55 07/24/20 25 07/31/2025 RESPI RATOR Y ALLER GY PANEL REGIO N VIII W/REF L class 0/1 Not Available [address], [address], 07/31/2025 12:11:55 07/24/2007/31/2025 RESPI RATOR Y ALLER GY PANEL REGIO N VIII W/REF L henny grass (g6) IgE 0.11 kU/L high Not Available [address], [address], 07/31/2025 12:11:55 07/24/2007/31/2025 RESPI RATOR Y ALLER GY PANEL REGIO N VIII W/REF L class 0/1 Not Available [address], [address], 07/31/2025 12:11:55 07/24/2007/31/2025 RESPI RATOR Y ALLER GY PANEL REGIO N VIII W/REF L common ragweed (short) (W1) IgE 0.25 kU/L high Not Available [address], [address], 07/31/2025 12:11:55 07/24/20 25 07/31/2025 RESPI RATOR Y ALLER GY PANEL REGIO N VIII W/REF L class 0/1 Not Available [address], [address], 07/31/2025 12:11:55 07/24/2007/31/2025 RESPI RATOR Y ALLER GY PANEL REGIO N VIII W/REF L rough pigweed (W14) IgE 0.10 kU/L high Not Available [address], [address], 07/31/2025 12:11:55 07/24/2007/31/2025 RESPI RATOR Y ALLER GY PANEL REGIO N VIII W/REF L class 0/1 Not Available [address], [address], 07/31/2025 12:11:55 07/24/2007/31/2025 RESPI RATOR Y ALLER GY PANEL REGIO N VIII W/REF L barbadian thistle (W11) IgE 0.11 kU/L high Not Available [address], [address], 07/31/2025 12:11:55 07/24/2007/31/2025 RESPI RATOR Y ALLER GY PANEL REGIO N VIII W/REF L class 0/1 Not Available [address], [address], 07/31/2025 12:11:55 07/24/2007/31/2025 RESPI RATOR Y ALLER GY PANEL REGIO N VIII W/REF L rough yoseph oden (W16) IgE 0.24 kU/L high Not Available [address], [address], 07/31/2025 12:11:55 07/24/20 25 07/31/2025 RESPI RATOR Y ALLER GY PANEL REGIO N VIII W/REF L class 0/1 Not Available [address], [address], 07/31/2025 12:11:55 07/24/2007/31/2025 RESPI RATOR Y ALLER GY PANEL REGIO N VIII W/REF L mouse urine proteins (E72) IgE <0.10 kU/L normal Not Available [address], [address], 07/31/2025 12:11:55 07/24/20 25 07/31/2025 RESPI RATOR Y ALLER GY PANEL REGIO N VIII W/REF L class 0 Not Available [address] [address] [place], [address], 07/31/2025 12:11:55 07/24/2007/31/2025 RESPI RATOR Y ALLER GY PANEL REGIO N VIII W/REF L immunoglobul in E 866 kU/L <or=11 4 high Not Available [address] [address] [place], [address], 07/31/2025 12:11:55 07/24/2007/31/2025 CAT DANDE R COMPO NENT PANEL fel D 1 (E94) IgE <0.10 kU/L <0.10 normal Not Available [address] [address] [place], [address], 07/31/2025 12:11:56 07/24/2007/31/2025 CAT DANDE R COMPO NENT PANEL fel D 2 (E220) IgE <0.10 kU/L <0.10 normal Not Available [address] [address] [place], [address], 07/31/2025 12:11:56 07/24/2007/31/2025 CAT DANDE R COMPO NENT PANEL fel D 4 (E228) IgE <0.10 kU/L <0.10 normal Not Available [address] [address] [place], [address], 07/31/2025 12:11:56 07/24/2007/31/2025 CAT DANDE R COMPO NENT PANEL fel D 7 (E231) IgE <0.10 kU/L <0.10 [address] [employer] nent testi ng for sampl es with posit loc extra ct resul ts may help to rule out cross -reac tivit y and confi rm that aller gy is prese nt. The more compo nents a patie nt is sensi tized to, the highe r the likel ihood of a react ion when expos ed to cats. Not Available [facility] [address] [place], [address], 07/31/2025 12:11:56 07/24/2007/31/2025 DOG DANDE R COMPO NENT PANEL can F 1 (E101) IgE <0.10 kU/L <0.10 normal Not Available [address], [address], 07/31/2025 12:11:56 07/24/2007/31/2025 DOG DANDE R COMPO NENT PANEL can F 2 (E102) IgE <0.10 kU/L <0.10 normal Not Available [address], [address], 07/31/2025 12:11:56 07/24/2007/31/2025 DOG DANDE R COMPO NENT PANEL can F 3 (E221) IgE 0.92 kU/L <0.10 high Not Available [address], [address], 07/31/2025 12:11:56 07/24/2007/31/2025 DOG DANDE R COMPO NENT PANEL can F 4 (E229) IgE <0.10 kU/L <0.10 normal Not Available [address], [address], 07/31/2025 12:11:56 07/24/2007/31/2025 DOG DANDE R COMPO NENT PANEL can F 5 (E226) IgE <0.10 kU/L <0.10 normal Not Available [address], [address], 07/31/2025 12:11:56 07/24/2007/31/2025 DOG DANDE R COMPO NENT PANEL can F 6 (E230) IgE 0.15 kU/L <0.10 [address] [employer] nent testi ng for sampl es with posit loc extra ct resul ts may help to rule out cross -reac tivit y and confi rm that aller gy is prese nt. The more compo nents a patie nt is sensi tized to, the highe r the likel ihood of a react ion when expos ed to dogs. Sensi tizat ion to Can f 5 only may indic ate that the patie nt can serena ate femal e dogs. Not Available [address], [address], 07/31/2025 12:11:56 07/24/20 25 07/31/2025 FOOD ALLER GY PANEL (REFL ) egg white (F1) IgE 0.42 kU/L high Not Available [address], [address], 07/31/2025 12:11:56 07/24/2007/31/2025 FOOD ALLER GY PANEL (REFL ) class 1 Not Available [address], [address], 07/31/2025 12:11:56 07/24/2007/31/2025 FOOD ALLER GY PANEL (REFL ) peanut (F13) IgE 0.25 kU/L high Not Available [address], [address], 07/31/2025 12:11:56 07/24/2007/31/2025 FOOD ALLER GY PANEL (REFL ) class 0/1 Not Available [address], [address], 07/31/2025 12:11:56 07/24/2007/31/2025 FOOD ALLER GY PANEL (REFL ) wheat (F4) IgE 0.44 kU/L high Not Available [facility] [address] [address] [place], [address], 07/31/2025 12:11:56 07/24/2007/31/2025 FOOD ALLER GY PANEL (REFL ) class 1 Not Available [address], [address], 07/31/2025 12:11:56 07/24/2007/31/2025 FOOD ALLER GY PANEL (REFL ) walnut (F256) IgE <0.10 kU/L normal Not Available [address], [address], 07/31/2025 12:11:56 07/24/2007/31/2025 FOOD ALLER GY PANEL (REFL ) class 0 Not Available [address], [address], 07/31/2025 12:11:56 07/24/2007/31/2025 FOOD ALLER GY PANEL (REFL ) codfish (F3) IgE <0.10 kU/L normal Not Available [address], [address], 07/31/2025 12:11:56 07/24/2007/31/2025 FOOD ALLER GY PANEL (REFL ) class 0 Not Available [address], [address], 07/31/2025 12:11:56 07/24/20 25 07/31/2025 FOOD ALLER GY PANEL (REFL ) cow's milk (F2) IgE 4.62 kU/L high Not Available [address], [address], 07/31/2025 12:11:56 07/24/2007/31/2025 FOOD ALLER GY PANEL (REFL ) class 3 Not Available [address], [address], 07/31/2025 12:11:56 07/24/20 25 07/31/2025 FOOD ALLER GY PANEL (REFL ) soybean (F14) IgE 0.24 kU/L high Not Available [address], [address], 07/31/2025 12:11:56 07/24/2007/31/2025 FOOD ALLER GY PANEL (REFL ) class 0/1 Not Available [address], [address], 07/31/2025 12:11:56 07/24/2007/31/2025 FOOD ALLER GY PANEL (REFL ) maize/corn (F8) IgE 0.27 kU/L high Not Available [address], [address], 07/31/2025 12:11:56 07/24/2007/31/2025 FOOD ALLER GY PANEL (REFL ) class 0/1 Not Available [address], [address], 07/31/2025 12:11:56 07/24/2007/31/2025 FOOD ALLER GY PANEL (REFL ) shrimp (F24) IgE 0.71 kU/L high Not Available [address], [address], 07/31/2025 12:11:56 07/24/20 25 07/31/2025 FOOD ALLER GY PANEL (REFL ) class 2 Not Available [address], [address], 07/31/2025 12:11:56 07/24/2007/31/2025 FOOD ALLER GY PANEL (REFL ) scallop (F338) IgE 0.16 kU/L high Not Available [address], [address], 07/31/2025 12:11:56 07/24/20 25 07/31/2025 FOOD ALLER GY PANEL (REFL ) class 0/1 Not Available [address], [address], 07/31/2025 12:11:56 07/24/20 25 07/31/2025 FOOD ALLER GY PANEL (REFL ) clam (F207) IgE 0.31 kU/L high Not Available [address] [address] [place], [address], 07/31/2025 12:11:56 07/24/20 25 07/31/2025 FOOD ALLER GY PANEL (REFL ) class 0/1 Not Available [address] [address] [place], [address], 07/31/2025 12:11:56 07/24/2007/31/2025 FOOD ALLER GY PANEL (REFL ) sesame seed (F10) IgE 0.21 kU/L high Not Available [address], [address], 07/31/2025 12:11:56 07/24/2007/31/2025 FOOD ALLER GY PANEL (REFL ) class 0/1 Not Available [address], [address], 07/31/2025 12:11:56 07/24/2007/31/2025 INTER PRETA TION interpretati on Speci fic Level of Aller gen IGE Class kU/L Speci fic IGE Antib stan ----- ----- ---- ----- ----- ----- ---- 0 <0.10 Absen t/Und etect able 0/1 0.10- 0.34 Very Low Level 1 0.35- 0.69 Low Level 2 0.70- 3.49 Moder ate Level 3 3.50- 17.4 High Level 4 17.5- 49.9 Very High Level 5 50-10 0 Very High Level 6 >100 Very High Level The clini hugo relev ance of aller gen resul ts of 0.10- 0.34 kU/L are undet ermin ed and inten ded for speci alist use. Aller gens denot ed with a inclu de resul ts using one or more sandrita te speci fic reage nts. In those cases , the test was devel oped and its sandrita tical perfo rmanc e yosef cteri stics have been deter mined by [facility]. It has not been clear ed or appro rere by the U.S. Food and Drug Admin istra tion. This assay has been valid ated pursu ant to the CLIA regul ation s and is used for clini hugo purpo ses. Not Available [facility] [address] [place], [address], 07/31/2025 12:11:57 03/20/20 XR, ankle , 3 or more view No observ ation record ed. [email or web address] [facility] ([facility] [address] [place], [address], 03/20/2025 10:26:31 03/20/20 25 02/26/2025 PFT, compl ete No observ ation record ed. [email or web address], [place], [address], 03/21/2025 13:45:02 03/22/20 25 03/20/2025 XR, ankle , 3 or more view No observ ation record ed. [email or web address] [facility] ([facility] [address] [place], [address], 04/11/2025 16:47:59 05/12/20 25 05/08/2025 XR, lumbo sacra l spine , 2 or 3 view No observ ation record ed. [address] [place], [address], 06/12/2025 10:28:04 05/29/20 25 05/29/2025 MRI, lumba r spine , w/o contr ast No observ ation record ed. [email or web address] [place], [address], 06/12/2025 10:28:03 Result Notes None recorded. Problems Name Problem SNOMED Code Status Onset Date Resolution Date Notes Provider Name and Address Organization Details Recorded Time Essential hypertens ion 37208987 Active 2022 Lisbet medrano [facility] 5 08:38:41 Pruritic rash 22049939 Completed 202201/02/2025 Lisbet emdrano [facility] 5 08:38:36 Dysphagia 94918210 [facility] 08:38:41 Stricture of esophagus 95266918 Active 2022 Lisbet medrano [facility] 5 08:38:41 Mild intermitt ent asthma 740711155 Active 2022 Lisbet Llanos [facility] 5 08:38:54 Low back pain 647411781 Active 2022 Lisbet Llanos [facility] 5 08:38:41 Pain in right sacroilia c joint 173553308184 [address]996 Active 2022 Lisbet medrano [facility] 5 08:38:41 Eczema 73951550 Active 2023 Lisbet medrano [facility] 5 08:38:41 Type 2 diabetes mellitus 23651807 [facility] 08:38:41 Urinary incontine moe 860846705 Active 2023 Lisbet medrano, [facility] 5 08:38:41 Asthma 502850984 Active 2023 Lisbet Llanos null, [facility] 5 08:38:40 Periphera l venous insuffici ency 64339356 Active 2023 Lisbet Llanos null, [facility] 5 08:38:40 Systolic murmur 50749705 Active 2024 Lisbet Llanos null, [facility] 5 08:38:41 Cardiac chest pain 272725910 Active 2024 Lisbet medrano, [facility] 5 08:39:10 Mixed hyperlipi demia 064715592 Active 2024 Lisbet Llanos null, [facility] 5 08:38:41 Morbid obesity 273782702 Active 2024 Lisbet Llanos [facility], [facility] 5 08:38:40 Chronic low back pain 522263835 Active 2024 Reginald Quevedo [address], [address], [facility] 5 09:42:01 Bilateral lower limb edema 743897717 Active 2024 Reginald Quevedo [address], [address], [facility] 5 07:45:44 Lumbar radiculop athy 743295431 Active 2024 Reginald Quevedo [address] [address], [facility] 5 07:48:24 Left Achilles tendiniti s 791978801901 102 Active 2024 [facility] 5 11:03:45 Problem Notes None recorded. Procedures Surgical History Date Name Laterality Status Provider Name and Address Organization Details Recorded Time 023 Toenail avulsion completed Reginald Quevedo [address], [id number], [facility] 02/02/2023 14:23:36 008 Hemorrhoidectomy completed [facility] 01/25/2024 17:33:37 992 Hysterectomy completed Gary Bess [facility] 03/14/2024 09:32:31 980 delivery only completed [facility] 01/25/2024 17:33:23 976 uterine myomectomy completed [facility] 01/25/2024 17:32:53 964 tonsilectomy/adenoi ds completed [facility] 01/25/2024 17:32:17 Imaging Results None recorded. Procedure Notes None recorded. Medical Equipment None Reported. Allergies Allergen ID Allergen Name Allergen Category Reaction Reaction Severity Criticality Documentation Date Start Date Code Code System Note Provider Name and Address Organization Details Recorded Time 1407 Product containin g penicilli n (product) medicatio n Not available Not available Not available 01/26/2023 32613 8001 SNOMED [facility] 3 12:23:11 1408 Substance with sulfonami de structure and antibacte rial mechanism of action (substanc e) medicatio n Not available Not available Not available 01/26/2023 70745 8003 SNOMED [facility] 3 12:23:21 4276 lisinopri l medicatio n Not available Not available Not available 03/29/2023 40438 RxNorm [facility] 3 11:59:12 4277 amlodipin e medicatio n Not available Not available Not available 03/29/2023 85422 RxNorm [facility] 3 11:59:19 21312 Synthroid medicatio n other moderate low 05/14/2023 84342 0 RxNorm React ion: Mood [facility] 4 09:31:49 83950 lisinopri l-dietary supp no.10 medicatio n respirato ry distress Not available Not available 05/14/2023 React ion: Respi rator y distr ess; Comme nt: Recor ded 12/21 1:24P M by Beni Ramires r, Offic e Visit ; Promo derrell; Signi fican ce: *; Reaso n: Drug aller gy; ; [facility] 3 15:44:20 75586 amlodipin e besylate medicatio n edema Not available Not available 05/14/2023 47660 6 RxNorm React ion: Edema ; Comme nt: Recor ded 12/21 1:25P M by Beni Ramires r, Offic e Visit ; Promo derrell; Signi fican ce: *; Reaso n: Drug aller gy; ; [facility] 15:44:17 Medications Name Sig Start Date Stop Date Status Note LastModified by Organization Details LastModified Time losartan 50 mg tablet TAKE 1 TABLET BY MOUTH DAILY 03/29 completed Not Available Not Available Not Available clotrimaz ole 10 mg jd Take 1 tablet 5 times a day by oral route for 7 days. 11/23 completed Not Available Not Available Not Available promethaz ine-DM 6.25 mg-15 mg/5 mL oral syrup TAKE 5 ML BY MOUTH EVERY 6 HOURS NEEDED FOR COUGH 07/12 completed Not Available Not Available Not Available nystatin 100,000 unit/mL oral suspensio n SHAKE LIQUID AND TAKE 5 ML BY MOUTH FOUR TIMES DAILY FOR 14 DAYS RETAIN BY MOUTH LONG POSSIBLE BEFORE SWALLOWI NG 07/12 completed Not Available Not Available Not Available prednison e 10 mg tablet 04/11 completed Not Available Not Available Not Available clindamyc in HCl 300 mg capsule Take 1 capsule 4 times a day by oral route for 10 days, for cellulit is. 05/16 completed clindamy robyn 300m po QID x 10 days Not Available Not Available Not Available albuterol sulfate 2.5 mg/3 mL (0.083 %) solution for nebulizat ion Inhale 3 mL 3 times a day by nebuliza tion route as needed, for shortnes s of breath. 2024 active Not Available Not Available Not Avai lable cetirizin e 10 mg tablet TAKE 1 TABLET BY MOUTH DAILY 07/12 completed Not Available Not Available Not Available azithromy robyn 250 mg tablet TAKE 2 TABLETS (500 MG) BY ORAL ROUTE ONCE DAILY FOR 1 DAY THEN 1 TABLET (250 MG) BY ORAL ROUTE ONCE DAILY FOR 4 DAYS 2024 active Not Available Not Available Not Avai lable diltiazem CD 180 mg capsule,e xtended release 24 hr Take 1 capsule every day by oral route for 90 days. 2024 active Not Available Not Available Not Avai lable fluconazo le 150 mg tablet TAKE ONE TABLET BY MOUTH FOR ONE DAY. 2024 active Not Available Not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 risks and promote healthy living. Screening for malignant neoplasm of colon 728675412 Z12.11 Type 2 arun betes mellitus 86550723 E11.69 [id number] Reginald Quevedo DO [facility] ([facility]) [address] [place] [phone] 5 08/02/2024 12:03:37 08/03/2024 10:33:08 Essential hypertension 90485325 I10 07/04/24; BP gets elevated while traveling for work. will have pt take diltiazem on days/weeks she is working02/15 07/10- Counseled continue Olmesartan in the am. Will change Metoprolol to 25mg to take at night, any sleepy effects from the Metoprolol will be occurring at night. Type 2 arun betes mellitus 93931348 E11.69 07/04/24: tolerating low dose mounjaro very well. will plan on increasing . pt to monitor glucose and symptoms.: Patient did not tolerate Ozempic due to GI side effects. She has failed glipizide and metformin in the past. She has failed dietary changes. We will try Mounjaro. Counseled on medication , usage, expectatio ns, side effects. Follow-up 1 month after starting.C onsider Trulicity if mounjaro not covered.- Discussed Ozempic, risks/ benefits, possible side effects, how it works. Reassured pt this is safe to take, I do recommend she take it, educated on how to use today. [id number] Reginald Quevedo DO [facility] ([facility]) [address] [place] [phone] 5 08/29/2024 09:30:14 08/29/2024 17:57:27 Screening for malignant neoplasm of colon 152249559 Z12.11 I have reviewed and discussed colon cancer screening options, including colonoscop y. Discussed risks vs benefits including risk of infection and bleeding, perforatio n, possible need for surgery, reaction to medication s, and sever injury or . We discussed pt requiring sedation and possible general anesthesia . Pt agrees to proceed with Colonoscop y at [facility]. Preliminar y procedure date will be 09/06/24. Essential hypertension 65841469 I10 08/29/24- Counseled take Olmesartan and Diltiazem each am, Metoprolol 50mg at hs. Monitor BP and keep a log, consider adding back Metoprolol 25mg each am if not improving. 07/04/24; BP gets elevated while traveling for work. will have pt take diltiazem on days/weeks she is working02/15 07/10- Counseled continue Olmesartan in the am. Will change Metoprolol to 25mg to take at night, any sleepy effects from the Metoprolol will be occurring at night. [id number] Reginald Quevedo DO [facility] ([facility]) [address] [place] [address] 10/22/2024 16:55:16 10/23/2024 13:46:59 Cardiac chest pain 971117475 R07.9 RIAN score of 3. resolved CP currently. recommend Cardiac Stress test soon. I counseled on concerns for possible cardiac event. if worsening CP chew 4 baby asa and go to ER.Pt is morbidly obese with ASTHMA and chronic DJD of b/l knees and can not perform a treadmill test. Systolic murmur 95649248 R01.1 pt denies hx of any known valvular issue or past ECHO. Will get ECHO Essential hypertension 01805858 I10 08/29/24- Counseled take Olmesartan and Diltiazem each am, Metoprolol 50mg at hs. Monitor BP and keep a log, consider adding back Metoprolol 25mg each am if not improving. 07/04/24; BP gets elevated while traveling for work. will have pt take diltiazem on days/weeks she is working02/15 07/10- Counseled continue Olmesartan in the am. Will change Metoprolol to 25mg to take at night, any sleepy effects from the Metoprolol will be occurring at night. Mild inter mittent asthma 861195028 J45.20 Stable. needs rescue inhaler refilled. will change to airsupra. counseled Low back pain 364629771 M54.50 stable. No meds at this time. Peripheral venous insufficiency 04073934 I87.2 with incompeten t LE valves b/l. counseled on support hose, elevation. exercise. Type 2 arun betes mellitus 08605850 E11.69 07/04/24: tolerating low dose mounjaro very well. will plan on increasing . pt to monitor glucose and symptoms.: Patient did not tolerate Ozempic due to GI side effects. She has failed glipizide and metformin in the past. She has failed dietary changes. We will try Mounjaro. Counseled on medication , usage, expectatio ns, side effects. Follow-up 1 month after starting.C onsider Trulicity if mounjaro not covered.- Discussed Ozempic, risks/ benefits, possible side effects, how it works. Reassured pt this is safe to take, I do recommend she take it, educated on how to use today. Mixed hyperlipidemia 267 945443 E78.2 chronic. Pt has been counseled on statin medication s and continues to decline. She will continue to work on diet, weight loss, exercises. Morbid obesity 542500033 E66.01 Z68.41 Counseled obesity and on diet, exercise, weight loss. [id number] Reginald Quevedo DO [facility] ([facility]) [address] [place] [phone] 5 01/02/2025 09:28:17 01/03/2025 09:27:56 Essential hypertension 36982528 I10 12/15/24: Cousneled change Olmesartan to Valsartan, continue Metoprolol and Diltiazem. 08/29/24- Counseled take Olmesartan and Diltiazem each am, Metoprolol 50mg at hs. Monitor BP and keep a log, consider adding back Metoprolol 25mg each am if not improving. 07/04/24; BP gets elevated while traveling for work. will have pt take diltiazem on days/weeks she is working02/15 07/10- Counseled continue Olmesartan in the am. Will change Metoprolol to 25mg to take at night, any sleepy effects from the Metoprolol will be occurring at night. Mild inter mittent asthma 213224992 J45.20 01/03/24: Counseled continue Prednisone , will also add abx for possible secondary infection, she says Azithromyc in works well for her. Provided with Breztri samples today. Last had PFT approx 8 years ago, will update now. Referral to Pulm. Cardiac chest pain 64001445 5842 R07.9 Reviewed and discussed recent stress test and Echo. Systolic murmur 75585468 R01.1 Reviewed and discussed Echo. Type 2 arun betes mellitus 11947598 E11.69 01/02/25: Pt currently on steroid, will wait to draw A1c, continue current tx.07/04/24 : tolerating low dose mounjaro very well. will plan on increasing . pt to monitor glucose and symptoms.: Patient did not tolerate Ozempic due to GI side effects. She has failed glipizide and metformin in the past. She has failed dietary changes. We will try Mounjaro. Counseled on medication , usage, expectatio ns, side effects. Follow-up 1 month after starting.C onsider Trulicity if mounjaro not covered.- Discussed Ozempic, risks/ benefits, possible side effects, how it works. Reassured pt this is safe to take, I do recommend she take it, educated on how to use today. Mixed hyperlipidemia 267 680291 E78.2 chronic. Pt has been counseled on statin medication s and continues to decline. She will continue to work on diet, weight loss, exercises. [id number] Reginald Quevedo DO [facility] ([facility]) [address] [place] [phone] 5 03/06/2025 09:39:42 03/06/2025 13:02:47 Essential hypertension 98811064 I10 03/06/25: Reviewed BP log. Increase Valsartan 160mg, take 1.5 tablets daily.: Counseled change Olmesartan to Valsartan, continue Metoprolol and Diltiazem. 08/29/24- Counseled take Olmesartan and Diltiazem each am, Metoprolol 50mg at hs. Monitor BP and keep a log, consider adding back Metoprolol 25mg each am if not improving. 07/04/24; BP gets elevated while traveling for work. will have pt take diltiazem on days/weeks she is working02/15 07/10- Counseled continue Olmesartan in the am. Will change Metoprolol to 25mg to take at night, any sleepy effects from the Metoprolol will be occurring at night. Mild inter mittent asthma 906755233 J45.20 01/03/24: Counseled continue Prednisone , will also add abx for possible secondary infection, she says Azithromyc in works well for her. Provided with Breztri samples today. Last had PFT approx 8 years ago, will update now. Referral to Pulm. Cardiac chest pain 53313 0932 R07.9 Reviewed and discussed recent stress test and Echo. Systolic murmur 92779967 R01.1 Reviewed and discussed Echo. Type 2 arun perez mellitus 73377158 E11.69 03/06/25: stable, continue current tx.01/02/25 : Pt currently on steroid, will wait to draw A1c, continue current tx.07/04/24 : tolerating low dose mounjaro very well. will plan on increasing . pt to monitor glucose and symptoms.: Patient did not tolerate Ozempic due to GI side effects. She has failed glipizide and metformin in the past. She has failed dietary changes. We will try Mounjaro. Counseled on medication , usage, expectatio ns, side effects. Follow-up 1 month after starting.C onsider Trulicity if mounjaro not covered.- Discussed Ozempic, risks/ benefits, possible side effects, how it works. Reassured pt this is safe to take, I do recommend she take it, educated on how to use today. Mixed hyperlipidemia 267 594096 E78.2 chronic. Pt has been counseled on statin medication s and continues to decline. She will continue to work on diet, weight loss, exercises. Left Achil les tendinitis [id number] 71763 M76.62 [id number] 03/06/25: Counseled on diagnosis, treatment options including medication s and possible side effects. Diclofenac gel. Acute cellulitis 4639072 009 L03.90 [id number] 03/06/25: right choe, abx, counseled, pt ok with Cephalexin , doesn't want Doxy d/t limited sun exposure. [id number] Reginald Quevedo DO [facility] ([facility]) [address] [place] [address] 03/20/2025 09:46:58 03/21/2025 13:26:49 Pain of left heel [id number] 809842 M79.672 [id number] XR left foot today. Acute cellulitis 7394669 009 L03.90 [id number] 03/20/25: Improving, but not completely resolved, will repeat Cephalexin for 10 days.: right choe, abx, counseled, pt ok with Cephalexin , doesn't want Doxy d/t limited sun exposure. [id number] Reginald Quevedo DO [facility] ([facility]) [address] [place] [phone] 5 04/10/2025 14:18:07 04/16/2025 13:56:21 Essential hypertension 05781655 I10 04/10/25: Continue Valsartan, off Diltiazem d/t swelling, HR maintainin g.03/06/25: Reviewed BP log. Increase Valsartan 160mg, take 1.5 tablets daily.: Counseled change Olmesartan to Valsartan, continue Metoprolol and Diltiazem. 08/29/24- Counseled take Olmesartan and Diltiazem each am, Metoprolol 50mg at hs. Monitor BP and keep a log, consider adding back Metoprolol 25mg each am if not improving. 07/04/24; BP gets elevated while traveling for work. will have pt take diltiazem on days/weeks she is working02/15 07/10- Counseled continue Olmesartan in the am. Will change Metoprolol to 25mg to take at night, any sleepy effects from the Metoprolol will be occurring at night. Acute cellulitis 7732641 009 L03.90 6072545290 04/10/25: Counseled improving, no need for further abx at this time. 5: Improving, but not completely resolved, will repeat Cephalexin for 10 days.: right choe, abx, counseled, pt ok with Cephalexin , doesn't want Doxy d/t limited sun exposure. [id number] Reginald Quevedo DO [facility] ([facility]) [address] [place] [address] [phone] 5 04/29/2025 14:59:16 05/01/2025 08:39:26 Acute cellulitis 6232735814 L03.90 [id number] 04/29/25: LLE, after puncture, Clindamyci n, counseled. [id number] Reginald Quevedo DO [facility] ([facility]) [address] [place] [phone] 5 05/08/2025 08:48:23 05/09/2025 11:56:51 Essential hypertension 72561149 I10 05/08/25: improved. no change in meds.: Continue Valsartan, off Diltiazem d/t swelling, HR maintainin g.03/06/25: Reviewed BP log. Increase Valsartan 160mg, take 1.5 tablets daily.: Counseled change Olmesartan to Valsartan, continue Metoprolol and Diltiazem. 08/29/24- Counseled take Olmesartan and Diltiazem each am, Metoprolol 50mg at hs. Monitor BP and keep a log, consider adding back Metoprolol 25mg each am if not improving. 07/04/24; BP gets elevated while traveling for work. will have pt take diltiazem on days/weeks she is working02/15 07/10- Counseled continue Olmesartan in the am. Will change Metoprolol to 25mg to take at night, any sleepy effects from the Metoprolol will be occurring at night. Low back pain 489766800 M54.50 worsening with radiculopa thy. X-ray ordered. pt to work on home stretches and home core exercises twice a day. continue with chiropract or. continue nsaids. Peripheral venous insufficiency 66724363 I87.2 slow healing left LE ulcer. I again counseled on support hose, elevation. exercise. She needs to use support hose every day.finish abx.Return to office with no improvemen t or any problems. Go to ER with severe worsening or severe problems. Bilateral lower limb edema 275636307 R60.0 [id number] Discussed compressio n socks/hose to wear during the day. Pt to use telfa pad with ointment over open sores when putting on socks/hose . Lumbar radiculopathy 128 994772 M54.16 75810 worsening with radiculopa thy. X-ray ordered. pt to work on home stretches and home core exercises twice a day. continue with chiropract or. continue nsaids. Consider MRI pending symptoms and Xray results. [id number] Reginald Quevedo DO [facility] ([facility]) [address] [place] [phone] 5 06/12/2025 09:46:50 06/25/2025 08:23:29 Essential hypertension 91427850 I10 06/12/25: Resume Diltiazem 180mg.05/08: improved. no change in meds.: Continue Valsartan, off Diltiazem d/t swelling, HR maintainin g.03/06/25: Reviewed BP log. Increase Valsartan 160mg, take 1.5 tablets daily.: Counseled change Olmesartan to Valsartan, continue Metoprolol and Diltiazem. 08/29/24- Counseled take Olmesartan and Diltiazem each am, Metoprolol 50mg at hs. Monitor BP and keep a log, consider adding back Metoprolol 25mg each am if not improving. 07/04/24; BP gets elevated while traveling for work. will have pt take diltiazem on days/weeks she is working02/15 07/10- Counseled continue Olmesartan in the am. Will change Metoprolol to 25mg to take at night, any sleepy effects from the Metoprolol will be occurring at night. Mild inter mittent asthma 016116657 J45.20 06/12/25: Counseled use inhaler and nebs when having SOB, will refill.12/15 07/10: Counseled continue Prednisone , will also add abx for possible secondary infection, she says Azithromyc in works well for her. Provided with Breztri samples today. Last had PFT approx 8 years ago, will update now. Referral to Pulm. Left Achil les tendinitis [id number] 98310 M76.62 [id number] 06/12/25: Seeing Dr. Floyd, doing PT, which she doesn't feel is helping, MRI ordered this am per Dr. Floyd, looking at probable sx.03/06/25 : Counseled on diagnosis, treatment options including medication s and possible side effects. Diclofenac gel. Lumbar radiculopathy 128 186145 M54.16 [id number] 06/12/25: Reviewed and discussed MRI L spine performed 05/29/25. [id number] Reginald Quevedo DO [facility] ([facility]) [address] [place] [address] [place] [address] 07/24/2025 11:28:46 07/25/2025 11:00:56 Chronic obstructive pulmonary disease 13409416 J44.9 Stable, continue Breztri. Acute bronchitis 3183584 2 J20.9 [id number] 07/24/25: Abx, steroid, counseled. Allergic condition 96236 1001 T78.40XA [id number] 07/24/25: Respirator y allergy panel, counseled. Health Concerns Section Related Observation LastModified by Organization Detai ls LastModified Time None Recorded Concern Status LastModified by Organization Details LastModified Time None Recorded Advance Directives Directive None Recorded Payers Insurance Date Sequence Insurance Name Policy Number Policy Villalba Covered Member ID Villalba Member ID Guarantor Name 07/24/2025 [place] - [place] - PART A - [facility] (MEDICARE) Padma Jose [id number] Padma Ibarrare 07/24/2025 1 [place] [employer] Padma Jose [id number] Padma Jose 07/24/2025 2 () Padma Jose [id number] Padma Jose Notes Date Note Type Note Provider Name and Address Organization Details Recorded Time 04/10/2025 text/html ROS as noted in the HPI Pt presents for recheck on cellulitis of right choe. She feels that it is improved but not resolved.We have treated with two rounds of Cephalexin and one round of Clindamycin. She has been taking Valsartan 160 daily and feels this is working well for herBP 120/86 in clinic today.She hasn't taken Diltiazem for 2 days, feels her swelling to her ankles is much improved without it.HR maintaining 60's-70's. Reginald Quevedo DO [address] [place], [phone], [facility] 04/15/2025 23:39:40 04/29/2025 text/html ROS as noted in the HPI Pt presents for injury to left lower leg She bumped a metal watering can and punctured the skin on Tuesday afternoon approximately 2 pm, left lateral calf.Initially with a lot of clear fluid drainage, then it bled gently, not much blood . She denies any fever but is concerned d/t recent cellulitisshe has been applying aloe and bacitracin on the wound She took Clindamycin approx 1 month ago, tolerated well and it worked well for her. Tetanus last updated in Jul 2024. She also brought in copies of her xrays of her foot Reginald Quevedo, DO [address] [place] [address], [phone], [facility] 04/29/2025 22:30:55 05/08/2025 text/html Pt presents for back pain, chronic but worsening. lower back. dull throb, becomes sharp with activity. radiation down both legs. no new weakness or numbness to BLE. no change in bowel or bladder. She thinks she may have bone spurs. Her pain has been ongoing for 9-10 months. She has tried chiropractor and massage therapy and has not resolved the pain. she has rested it, she has done home exercises, and she is taking nsaids for the pain. She also wants her left lower leg wound checked to make sure healing properly Reginald Quevedo, DO [address] [place] [address], [phone], [facility] 05/16/2025 07:49:52 06/12/2025 text/html ROS as noted in the HPI Pt presents for recheck, 3 months She wants to discuss the MRI she had done.MRI L spine 05/29/25:IMPRESSION: 1. No acute marrow edema or fracture.2. L4-5: Moderate central, subarticular recess and LEFT foraminal stenosis due to disc osteophyte disease. There is mild contact on the traversing L5 nerve roots.3. L3-4: Mild central and RIGHT foraminal stenosis. Mild disc contact on the traversing L4 nerve roots.4. L2-3: Mild bilateral subarticular recess stenosis with contact on the traversing L3 nerve roots. She recently saw Dr. Floyd and she has bone spur that may need surgery, LLE. She does not feel that PT is helping it. She thinks is making it worse. She wants her left leg checked today She c/o she had some cp and sob this am.Not using her inhaler or neb, needs refills on these because she uses so rarely and they on her. She is also needing Diltiazem refilled today but it was stopped 04/10/25 Reginald DO Sae [address] [place] [address], [phone], [facility] 06/25/2025 02:42:42 07/24/2025 text/html ROS as noted in the HPI Pt presents for asthma flare-up for 4 days.Pt reports it is worse first thing in the morning, increased wheezing.She has chest congestion and is coughing up yellow /brown phlegm. She has been using her nebulizer TID but feels that it is settling in her chest. She is concerned will turn into lung infection She is requesting rx for Breztri to meds by mail pt requesting allergy testing, has a rash all over, reports it comes and goes, thinks she is having reaction to something. Recently seen by Dr. Floyd, talked about inflammation and bone spurs, pt working on decreasing inflammation. Reginald Quevedo DO [address] [place] [address], [phone], [facility] 07/24/2025 13:26:06 OBGyn Episode No OBEpisode recorded.
[2025-08-09 18:22] VITALS: BP 123/87; PULSE 56; RESP 16; TEMP 36.7; O2SAT 95
--- NOTE | 2025-08-09 18:30 | CTR_ITS ---
PROCEDURE INFORMATION: Exam: CT Head Without Contrast Exam date and time: 08/09/2025 8:23 PM Age: 69 years old Clinical indication: Injury or trauma; Blunt trauma (contusions or hematomas); Fall with frontal headstrike. TECHNIQUE: Imaging protocol: Computed tomography of the head without contrast. Radiation optimization: All CT scans at this facility use at least one of these dose optimization techniques: automated exposure control; mA and/or kV adjustment per patient size (includes targeted exams where dose is matched to clinical indication); or iterative reconstruction. COMPARISON: No relevant prior studies available. RADIATION DOSE METRICS: Total DLP (mGy-cm): 1055.38 FINDINGS: Brain: No acute intracranial hemorrhage. No infarction. No midline shift. Left parietal extra-axial calcified mass measuring 1.5 cm suggestive of meningioma. Cerebral ventricles: No hydrocephalus. Paranasal sinuses: Paranasal sinuses are grossly clear. Mastoid air cells: Mastoid air cells are grossly clear. Bones: Calvarium appears intact. Soft tissues: Subtle right frontal abrasion. CT/CT head wo con* [id number] IMPRESSION: No acute intracranial abnormalities.
--- NOTE | 2025-08-09 20:33 | W.ED.FALL ---
HPI - Fall General: Chief Complaint: Fall Stated Complaint: Fell and hit head Time Seen by Provider: 08/09/25 19:12 History of Present Illness: Patient is a 69-year-old female that had a tripping fall and hit her head, right frontal. She complains of pain, that improved with ice. She has not had any analgesic. She was able to drive herself to the ED. Selected Entries 08/09/25 18:22 ED Triage Comment [place] caught her foot and fell hitting h er head. Has appr ox 1 in lac to for ehead ( just in th e hairline) Bleedi ng is controlled a t this time. repor ts pain to bilat l ower arm pain from catching self. De nies loc, denies t hinners . Associated symptoms-after fall: Reports headache(s); Denies abdominal pain, chest pain or neck pain Related Data Home Medications ?Medication ?Instructions ?Recorded ?Confirmed albuterol sulfate 0.63 mg/3 mL 0.63 mg inhalation QID PRN Allergy 03/19/20 07/24/25 solution for nebulization Symptoms pantoprazole 40 mg tablet,delayed 40 mg PO DAILY PRN Acid Reflux 02/16/23 07/24/25 release (Protonix) albuterol sulfate 90 mcg/actuation 2 puff inhalation Q6H PRN 01/01/25 07/24/25 aerosol inhaler Shortness Of Breath diltiazem HCl 180 mg 180 mg PO DAILY 01/01/25 07/24/25 capsule,extended release 24 hr metoprolol succinate 50 mg 50 mg PO QPM 01/01/25 07/24/25 tablet,extended release 24 hr budesonide 160 mcg-glycopyr 9 2 inh inhalation BID 01/14/25 07/24/25 mcg-formot 4.8 mcg/actuation HFA inhaler (Breztri Aerosphere) valsartan 160 mg tablet 160 mg PO DAILY 01/14/25 07/24/25 Previous Rx's ?Medication ?Instructions ?Recorded furosemide 20 mg tablet (Lasix) 20 mg PO QAM PRN edema #90 tabs 02/16/23 clotrimazole 10 mg jd 10 mg mucous membrane 5XD #60 tabs 01/01/25 prednisone 20 mg tablet 20 mg PO TID #15 tabs 01/01/25 cephalexin 500 mg capsule 500 mg PO BID 3 days #6 caps 08/09/25 Allergies Allergy/AdvReac Type Severity Reaction Status Date / Time amlodipine Allergy Severe SWELLING Verified 08/09/25 18:27 LEG levothyroxine sodium (From Allergy Mild MOOD Verified 08/09/25 18:27 Synthroid) CHANGES lisinopril Allergy Mild TROUBLE Verified 08/09/25 18:27 BREATHING Penicillins Allergy ALGY-Hives Verified 08/09/25 18:27 Sulfa (Sulfonamide Allergy ALGY-Hives Verified 08/09/25 18:27 Antibiotics) Review of Systems General: Reports: 10 or more systems reviewed and unremarkable except in HPI and below Const: Denies: fever(s), chills or fatigue Eyes: Denies: change in vision Card: Denies: chest pain or palpitations Resp: Denies: dyspnea GI: Denies: abdominal pain, nausea, vomiting, diarrhea or constipation : Denies: flank pain Musc: Denies: neck pain, back pain or extremity pain Skin/Breast: Reports: changes in skin color and nail changes; Denies: sores Neuro: Reports: headache(s); Denies: numbness in extremities Psych: Denies: suicidal ideation Isac/Lymph: Denies: easy bruising PFSH ED PFSH: Medical History (Updated 08/09/25 @ 21:41 by ILIANA Elliott) Hiatal hernia Acid reflux Adenomyomatosis of gallbladder Anxiety Diverticulosis Herpes simplex Hyperlipidemia Hypertension H/O methicillin resistant Staphylococcus aureus Asthma Diabetes COPD (chronic obstructive pulmonary disease) Abdominal pain Chronic constipation Surgical History H/O section H/O hemorrhoidectomy H/O: hysterectomy History of tonsillectomy H/O myomectomy History of colonoscopy Family History Grandmother Lung disease Osteoporosis Mother Hypertension Stroke Father Cancer leukemia Unknown Lung disease child with astma Social History Smoking and tobacco/nicotine status: never used tobacco/nicotine Alcohol intake: never Substance/Drug Use: never Adopted: No Caregiver/support person: Yes Lives independently: Yes Household members: spouse Housing: House Marital status: / service: No Current occupational status: employed Current occupational exposures/hazards: No Pets and animals: No Sexually active: No Do you think of yourself as: Straight/Heterosexual Current gender identity: Female Kalie/Muslim: Scientologist Special kalie needs: No Agree to transfusion: No Physical Exam HENMT: FACE & SINUS IMAGES:  1. 5 cm laceration Neck/C-Spine: COMMON NORMALS: full ROM and no lymphadenopathy Chest: COMMONS NORMALS: normal inspection of the chest Resp: COMMON NORMALS: normal respiratory effort, No retractions and clear to auscultation bilaterally AUSCULTATION: clear to auscultation bilaterally Cardio: COMMON NORMALS: regular rate and regular rhythm RATE: regular rate RHYTHM: regular rhythm GI: COMMON NORMALS: Normal to inspection, nondistended, normoactive bowel sounds present, Soft to palpation, non-tender and No hepatosplenomegaly present PALPATION: Yes Soft to palpation and Yes No hepatosplenomegaly present Extremity: NARRATIVE EXTREMITY EXAM: Skin tear to right forearm Procedures Laceration Laceration 1: Site: scalp Side (If applicable): right Size (cm): 5 Description: linear Depth: simple, single layer Local Anesthetic: lidocaine 1% and with epi Amount of anesthesia used (mL): 3 Pre-repair: wound explored and irrigated extensively Skin layer closed with: other (donnell) Size (cm): other (donnell) Number of sutures: 6 Technique: other (staple) Course Vital Signs: Vital signs: Vital Signs Temperature 98.1 F 08/09/25 18:22 Pulse Rate 56 L 08/09/25 18:22 Respiratory Rate 16 08/09/25 18:22 Blood Pressure 123/87 08/09/25 18:22 Pulse Oximetry 95 08/09/25 18:22 MDM - Fall Medical Decision Making Patient is a 69-year-old female presented [place] a [place] accident [place] the [place]. She had a laceration to the right side of her head. She has association of a headache. She was on anticoagulation. CT of the head was negative for acute bleed. The laceration was numbed with lidocaine, and donnell were placed. Good closure was obtained. Explained to patient to wash her hair daily, and remove donnell in 5-6 days. Lab Data Radiology Impressions Head CT 08/09/25 18:30 IMPRESSION: No acute intracranial abnormalities. All radiology interpretation(s) finalized by discharge Discharge Plan Discharge Patient Disposition: Home Clinical Impression: Laceration of scalp Qualifiers: Encounter type: initial encounter Qualified Code(s): S01.01XA - Laceration without foreign body of scalp, initial encounter Condition: Stable Prescriptions: New cephalexin 500 mg capsule 500 mg PO BID 3 Days Qty: 6 0RF No Action albuterol sulfate 0.63 mg/3 mL solution for nebulization 0.63 mg INHALATION QID PRN (Reason: Allergy Symptoms) pantoprazole [Protonix] 40 mg tablet,delayed release (DR/EC) 40 mg PO DAILY PRN (Reason: Acid Reflux) furosemide [Lasix] 20 mg tablet 20 mg PO QAM PRN (Reason: edema) Qty: 90 3RF Breztri Aerosphere 160-9-4.8 mcg/actuation HFA aerosol inhaler 2 inh inhalation BID valsartan 160 mg tablet 160 mg PO DAILY diltiazem HCl 180 mg capsule,extended release 24hr 180 mg PO DAILY albuterol sulfate 90 mcg/actuation Hfa Aerosol Inhaler 2 puff INHALATION Q6H PRN (Reason: Shortness Of Breath) metoprolol succinate 50 mg tablet extended release 24 hr 50 mg PO QPM prednisone 20 mg tablet 20 mg PO TID Qty: 15 0RF Rx Instructions: 1 p.o. 3 times daily x3 days, 1 p.o. twice daily x2 days, 1 p.o. daily x2 days clotrimazole 10 mg jd 10 mg mucous membrane 5XD Qty: 60 0RF Discharge Orders: Discharge ED (Routine); Ordered 08/09/25 Ordered By: Claribel Mesa Referrals: Reginald Quevedo DO [Primary Care Provider, [facility]] Discharge Diet: Usual diet Discharge Activity: Resume usual activity Patient Instructions: Laceration (ED), Patient Portal & Holly Instructions Activity Restrictions/Additional Instructions: - Remove donnell and 5-7 days. - Take antibiotics as directed. They were sent to your pharmacy. Obtain in the morning. This for prophylaxis. - Wound care to right arm: Mupirocin that the nurse placed on here, followed by Vaseline gauze you obtain [id number] or Vaseline, cover with nonadherent dressing, and paper tape. -Tylenol and ibuprofen for pain. Hydrocodone x 1 was sent home with you. You may ice this area as you know it helps with pain. - Return to ED with worsening redness, drainage, fever greater than 100.4 ?F Thank you for choosing [facility] for your healthcare needs today. You have been screened and evaluated and felt safe for discharge. Health conditions do change or evolve sometimes and as such it is important that you follow up with your Primary Doctor to be re checked, 3-5 days is a general good time frame for follow up. You are always welcome to return to the ED for re assessment if your symptoms are worsening or you have new concerns Print Language: Setswana Coding Level of Care Code ED Business Development Intern for [employer]
[2025-08-09] MEDS: tetanus-dipt-pertussis 0.5 mL SDV IM (21:48)
[2025-08-09] MEDS: HYDROcodone-acetaminophen 10-325 mg Tablet 1 TAB PO (21:57)
[2025-08-09] MEDS: lidocaine-epi 1% 20 mL INJ INJECTION (21:58)
== END 2025-08-09 22:15 | disposition home or self-care (01) ==
PROVIDERS: Emergency Provider Physician Assistant; PCP Electrodiagnostic Medicine
DX: S01.01XA Laceration without foreign body of scalp, initial encounter (principal); W01.0XXA Fall on same level from slipping, tripping and stumbling without subsequent striking against object, initial encounter; E78.5 Hyperlipidemia, unspecified; I10 Essential (primary) hypertension; E11.9 Type 2 diabetes mellitus without complications; J44.9 Chronic obstructive pulmonary disease, unspecified
CPT/HCPCS: 12002; 70450; 90471; 90715; 99284; J9999

== ENCOUNTER → 2025-09-03 11:26 | Outpatient (BNVA) | payer MEDICARE, OTHER, SELFPAY | PROVIDERS: PCP Electrodiagnostic Medicine; Visit Provider Nurse Practitioner Family | DX: L30.8 Other specified dermatitis (principal); L57.8 Other skin changes due to chronic exposure to nonionizing radiation; X32.XXXA Exposure to sunlight, initial encounter; D18.01 Hemangioma of skin and subcutaneous tissue; L81.4 Other melanin hyperpigmentation; L73.8 Other specified follicular disorders; L82.1 Other seborrheic keratosis; L60.8 Other nail disorders; D23.71 Other benign neoplasm of skin of right lower limb, including hip; L57.0 Actinic keratosis | CPT/HCPCS: 17000; 99214 ==

== ENCOUNTER → 2025-10-15 14:02 | Outpatient (BNVA) | payer MEDICARE, OTHER, SELFPAY | PROVIDERS: PCP Electrodiagnostic Medicine; Visit Provider Internal Medicine | DX: I35.0 Nonrheumatic aortic (valve) stenosis (principal); I10 Essential (primary) hypertension; R07.89 Other chest pain | CPT/HCPCS: 99214 ==